=== PATIENT | female | born 1950 | race African-American/Black ===

== ENCOUNTER 2017-09-01 22:20 | Inpatient (IN) | payer OTHER, MEDICARE ==
[~2017-09-01] VITALS: Ht 167.6 cm; Wt 85.3 kg
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
[2017-09-02 00:55] LABS: ABSOLUTE BASOPHIL COUNT 0 /CUMM (0.0-0.2); ABSOLUTE EOSINOPHIL COUNT 0 /CUMM (0.0-0.7); ABSOLUTE GRANULOCYTE CT 7.4 /CUMM (1.4-6.5); ABSOLUTE LYMPH COUNT 0.6 /CUMM (1.2-3.4); ABSOLUTE MONOCYTE COUNT 0.5 /CUMM (0.10-0.60); BASOPHIL % 0.2 % (0.0-2.0); EOSINOPHIL % 0.3 % (0-5); HEMATOCRIT 36.9 % (37-47); MEAN CORPUSCULAR HGB 28.9 PG (27.0-31.0); MEAN CORPUSCULAR HGB CONC 32.3 G/DL (33.0-37.0); MEAN CORPUSCULAR VOLUME 89.4 FL (81.0-99.0); MEAN PLATELET VOLUME 8.5 FL (7.4-10.4); PLATELET COUNT 210 /CUMM (130-400); RBC DISTRIBUTION WIDTH 14.3 % (11.5-14.5); RED BLOOD CELL CT 4.13 /CUMM (4.20-5.40)
[2017-09-02 00:59] LABS: GRANULOCYTE % 86.2 % (42.2-75.2)
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
[2017-09-02 01:16] LABS: WHITE BLOOD CELL COUNT 8.6 /CUMM (4.8-10.8)
--- NOTE | 2017-09-02 02:47 | History & Physical ---
Pierre PARR,[place] 09/02/17 0247: General Information and HPI MD Statement: I have seen and personally examined FIDE RODRIGUES and documented this H&P. The patient is a 67 year old F who presented with a patient stated chief complaint of [L sided weakness and fall]. Source of Information: patient Exam Limitations: poor historian History of Present Illness: Patient is a 67-year-old female with a PMH significant for COPD, HTN, type II DM , laryngeal cancer status post radiation chemotherapy, arthritis, hypothyroidism who was brought in to the [facility] ED status post fall. Patient states that since 08/18/17 she has had progressive left-sided weakness which included her left upper and lower extremities as well as paresthesias with a tingling sensation in her left hand and a tingling and numbness sensation of her left side of her face. On the day of admission the patient states that she attempted to sit on the edge of a chair and slid off the and was too weak to stand up. She denied any associated chest pain, shortness of breath, lightheadedness, dizziness, loss of consciousness, head strike. She reports that she had a similar fall within the last week but cannot recall the date but at that time had the strength to stand back up. She has been having difficulty walking but has been able to ambulate independently. She had not sought any medical treatment for her left- sided weakness. She notes an approximate 11 pound weight loss in the last month with decreased appetite since the onset of his symptoms. She denied any slurring of speech, visual changes although notes that she has blurry vision at baseline and uses corrective lenses, headaches, nausea, vomiting. Allergies/Medications Allergies: Coded Allergies: No Known Allergies (09/01/17) Home Med list Amlodipine Besylate 10 MG TABLET 1 TAB PO DAILY BP (Reported) Hydralazine HCl 25 MG TABLET 1 TAB PO TID BP (Reported) Levothyroxine Sodium 25 MCG TABLET 1 TAB PO DAILY THYROID (Reported) Metformin HCl 500 MG TABLET 1 TAB PO BID DM (Reported) Metoprolol Tartrate 50 MG TABLET 1 TAB PO BID htn (Reported) Rosuvastatin Calcium (Crestor) 10 MG TABLET 1 TAB PO DAILY HL (Reported) Valsartan/Hydrochlorothiazide (Valsartan-Hctz 160-12.5 MG Tab) 160 MG-12.5 MG TABLET 1 TAB PO DAILY BP (Reported) Past History Travel History Traveled to [place] past 21 day No Medical History Neurological: NONE EENT: LARYGIAL CANCER Cardiovascular: hypertension Respiratory: COPD Gastrointestinal: NONE Hepatic: NONE Renal: NONE Musculoskeletal: NONE Psychiatric: NONE Endocrine: diabetes Blood Disorders: NONE Cancer(s): THROAT CANCER Tetanus Vaccine: 09/02/17 Tetanus Status: up to date Surgical History Surgical History: non-contributory Past Family/Social History Family History Relations & Conditions if any Relation not specified for: *No pertinent family history Psychosocial History Where do you live? Home Primary Language: Bolivian Smoking Status: Current Everyday Smoker (50 pack years) ETOH Use: denies use Illicit Drug Use: denies illicit drug use Living Will? no Functional Ability ADLs Independent: dressing, eating, toileting, bathing. Ambulation: independent Review of Systems Review of Systems Constitutional: Denies: chills, fever, malaise. EENTM: Reports: blurred vision (uses corrective lenses). Cardiovascular: Denies: chest pain, palpitations, syncope. Respiratory: Denies: cough, sputum production. GI: Denies: abdominal pain, diarrhea, nausea, bloody stool, vomiting. Genitourinary: Denies: dysuria, frequency, hematuria. Musculoskeletal: Reports: no symptoms. Skin: Reports: no symptoms. Exam & Diagnostic Data Last 24 Hrs of Vital Signs/I&O Vital Signs Date Time Temp Pulse Resp B/P B/P Pulse O2 O2 Flow FiO2 Mean Ox Delivery Rate 09/02 0435 91 Room Air 09/02 0422 98.1 90 18 128/92 91 Room Air 09/02 0045 98.3 82 16 112/71 98 Room Air 09/01 2229 98.9 95 18 110/66 93 Room Air Intake & Output 09/02 0800 09/02 0000 09/01 1600 Intake Total Output Total Balance Patient 187 lb 187 lb Weight Weight Bed scale Estimated Measurement Method Physical Exam General Appearance Alert, Oriented X3, Cooperative, No Acute Distress Skin No Rashes Skin Temp/Moisture Exam: Warm/Dry Cardiovascular Regular Rate, Normal S1, Normal S2 Lungs Clear to Auscultation, Normal Air Movement Abdomen Normal Bowel Sounds, Soft, No Tenderness Neurological Normal Speech, Cranial Nerves 3-12 NL, diminshed sensation of the RLE, RLE strength 4/5 with RLE drift, ataxic gait, patient failed bed side swallow evaluation with cough and throat clearing after sips of water Extremities No Clubbing, No Cyanosis, No Edema, Laceration to the R hand s/p 8 sutures placed in ED Body Front and Back (Adult) 1) laceration Last 24 Hrs of Labs/Harmeet: Laboratory Tests 09/02/17 0046: Anion Gap 12, Estimated GFR > 60, BUN/Creatinine Ratio 12.5, Glucose 104 H, Calcium 9.8, Total Bilirubin 0.7, AST 25, ALT 17, Alkaline Phosphatase 87, Troponin I < 0.01, Total Protein 7.2, Albumin 4.0, Globulin 3.2, Albumin/ Globulin Ratio 1.3, CBC w Diff NO MAN DIFF REQ, RBC 4.13 L, MCV 89.4, MCH 28.9, MCHC 32.3 L, RDW 14.3, MPV 8.5, Gran % 86.2 H, Lymphocytes % 7.4 L, Monocytes % 5.9, Eosinophils % 0.3, Basophils % 0.2, Absolute Granulocytes 7.4 H, Absolute Lymphocytes 0.6 L, Absolute Monocytes 0.5, Absolute Eosinophils 0, Absolute Basophils 0 09/02/17 0018: Urine Color YEL, Urine Clarity CLEAR, Urine pH 6.0, Ur Specific Guffey 1.010, Urine Protein TRACE H, Urine Ketones 15 H, Urine Nitrite NEG, Urine Bilirubin NEG, Urine Urobilinogen 2.0 H, Ur Leukocyte Esterase NEG, Ur Microscopic SEDIMENT EXAMINED, Ur Epithelial Cells RARE, Urine Crystals 4+ CA OX H, Urine Hemoglobin NEG, Urine Glucose NEG Microbiology 09/02 0453 URINE ROUT: Urine Culture - ORD Diagnostic Data EKG Results NSR with HR 76, QTc [address] Chest/abd/pelvis with IV contrast The heart is of normal size. There is no pericardial effusion. There are enlarged mediastinal lymph nodes. There is a right pretracheal lymph node on image 143/984 measuring approximately 2.7 x 2.5 cm. There is an enlarged lymph node anterior to the upper SVC on image 136 measuring approximately 1.8 x 1.4 cm. There is a subcarinal lymph node measuring 1.7 x 1.4 cm. There is a right hilar lymph node measuring 2.0 x 2.0 cm.. There are no chest wall masses. Review of lung windows demonstrates that there are neither pleural effusions nor pneumothoraces. There are mild manifestations of biapical emphysema. There is a right upper lobe cavitary lesion on image 170 measuring approximately 1.5 cm in greatest dimension. There is an irregular shaped macrolobulated mildly spiculated right upper lobe mass on image 202 measuring approximately 3.4 x 2.8 cm. There is inferior segment left lingular atelectasis or scarring. The liver is of normal size and attenuation without focal lesions nor intrahepatic biliary ductal dilation. A normal gallbladder is identified. There is no wall thickening or discernible pericholecystic fluid. The spleen, pancreas, adrenal glands are unremarkable. Both kidneys are of normal size and attenuation without hydronephrosis or nephrolithiasis. Following the administration of IV contrast, prompt symmetric nephrograms are displayed. There is no abdominal free fluid. There is neither mesenteric nor retroperitoneal lymphadenopathy. Normal unopacified loops of small and large bowel are identified. A normal appendix is identified. There is no pelvic free fluid. The urinary bladder is unremarkable. There is neither pelvic nor inguinal lymphadenopathy. Bone windows: Neither sclerotic nor lytic bone lesions are identified. IMPRESSION: Spiculated right upper lobe mass concerning for a primary lung neoplasm. In addition, there is mediastinal and right hilar lymphadenopathy. There is an additional cavitary right upper lobe lesion. Mild biapical emphysema. Other Results HEAD CT There are no pathologic extra-axial fluid collections. The lateral, third, fourth ventricles are nondilated and concordant with the appearance of the sulci. There is extensive subcortical low-attenuation within the right centrum semiovale with suggestion of mass effect manifested by subtle sulcal effacement. Within the high right frontoparietal region, there is an ill-defined area of low-attenuation measuring approximately 10 mm on image 44/64. In addition, there is an area of low-attenuation measuring approximately 12 mm within the medial right frontal lobe adjacent to the cortex. The paranasal sinuses and mastoid air cells are clear. There are no osseous lesions. IMPRESSION: Extensive subcortical low-attenuation within the right centrum semiovale suggestive of edema. This surrounds an ill-defined area of low-attenuation within the high right frontoparietal region measuring 10 mm. The appearance is nonspecific, but could be b2b outside sales representative of a mass lesion with surrounding edema. That this represents a subacute infarction is also to be considered. As well, there is a similar appearing subtle ill-defined 12 mm low-attenuation lesion within the medial right frontal lobe. Consider correlation with brain MRI with contrast at this time. Assessment/Plan Assessment: Patient is a 67-year-old female with a PMH significant for COPD, HTN, type II DM , laryngeal cancer status post radiation chemotherapy, arthritis, hypothyroidism who was brought in to the [facility] ED status post fall. Patient states that since 08/18/17 she has had progressive left-sided weakness which included her left upper and lower extremities as well as paresthesias with a tingling sensation in her left hand and a tingling and numbness sensation of her left side of her face. Head CT shows extensive edema surrounding an area of low attenuation in the right frontoparietal region approximately 10 mm and in the medial right frontal lobe [address] chest shows right upper lobe spiculated mass and cavitary right upper lobe lesion. Vital signs on admission: T 98.9, P 95, RR 18, BP 110/66, pulse ox 93% on room air Labs: WBC 8.6, H/H 11.9/36.9, platelets 210, sodium 146, potassium 3.9, chloride 101, CO2 32, BUN 10, creatinine 0.8, glucose 104, troponin <0.01 Problem list #Left-sided weakness and paresthesia in setting of poorly visualized areas of low attenuation suspicious for metastatic lesion, cannot rule out CVA #spiculated right upper lobe mass seen on CT #Right hand laceration status post suturing in ED #Chronic medical problems including COPD, HTN, type II DM, laryngeal carcinoma status post radiation and chemotherapy, arthritis, hypothyroidism Plan -Admit to telemetry -Continuous telemetry monitoring -Neuro checks every 4 hours -Echocardiogram -Carotid Doppler ultrasound -MRI head with and without gadolinium to better visualize the poorly visualized areas of low attenuation suspicious for mass lesion or possible subacute infarct -Neurosurgical consult placed with the answering service of Dr. Thurman -Oncology consult placed with answering service to [facility], patient followed with Dr. England for laryngeal cancer -Neurology consult placed with the answering service of Dr. Fry -Patient failed a bedside swallow evaluation, we will keep n.p.o. pending a formal swallow evaluation -Gentle IV hydration with D5 NS -N.p.o. Novolin sliding scale with Accu-Cheks every 6 hours until diet advanced -We will hold anti-hypertensive medication for now -8 mg Decadron one time -Fall precautions, seizure precautions, aspiration precautions -PT evaluation and treatment Diet: N.p.o. pending formal swallow evaluation, then diabetic diet DVT prophylaxis: Subcutaneous heparin, Alps CODE STATUS: Full code As Ranked By This Provider Problem List: 1. Paresthesia 2. Intracranial space-occupying lesion 3. Lesion of lung 4. Cavitary lesion of lung Core Measures/Misc (12/03) Acute Coronary Syndrome ACS Diagnosis: No Congestive Heart Failure Congestive Heart Failure Diagnosis No Cerebrovascular Accident CVA/TIA Diagnosis: Yes NIH Stroke Scale: Total 3 Date Last Known Well: 08/18/17 Time Last Known Well: 0000 Symptom Start Date: 08/18/17 Symptom Start Time: 0000 Reason tPA not ordered Medical Contraindication Swallow Evaluation Fail Current/Past Hx AFib/AFlutter No No Antithrombotic d/t Medical Contraindication VTE (View Protocol) VTE Risk Factors Age>40 No Mechanical VTE Prophylaxis d/t N/A MechProphylax Ordered No VTE Pharm Prophylaxis d/t NA PharmProphylax ordered Sepsis (View protocol) Sepsis Present: No If YES complete Sepsis Event Note If YES complete Sepsis Event Note Kathy Keita 09/02/17 0302: Core Measures/Misc (12/03) Sepsis (View protocol) If YES complete Sepsis Event Note If YES complete Sepsis Event Note Resident Review Statement Resident Statement: examined this patient, discussed with inclusion intern, agreed with inclusion intern Other Findings: This is a 67-year-old female with past medical history of laryngeal disorder, current active smoker, COPD with chronic bronchitis, 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 Apparently the patient started to experience some left-sided weakness in the leg along with left-sided weakness associated with tingling and numbness in the hand along with facial numbness on 08/18/2017. The weakness and the tingling numbness has since been there, she has also experienced urinary incontinence, wherein she experiences the sensation however she cannot reach the bathroom in time. Today she was extremely weak and went too far to the end of her seat and couldn't get up after the fall that is when she called 911. Her weakness has been present since August 18, same no improvement or worsening.She also endorses the history of losing 11 pounds in last 1 month and lack of appetite. Her vitals on presentation are MAXIMUM TEMPERATURE of 98.9, pulse of 95, respiration of 18, blood pressure 110/66, she was saturating 93% on room air. Physical Exam : AOx3,no acute distress, sitting on the bed, mouth very dry, poor oral hygiene CVS : s1s2 present, no murmur RS : AEBE, no air movement. Abd : soft,nontender Neuro : normal speech, CN intact,cerebellar signs normal, gait ataxia +, diminishes strength 4/5 RLE, RLE drift+, LLE 5/5, b/l UE 5/5 ,DTR+. Extremities : no clubbing, cyanosis, edema, pulses palpable b/l. Relevant labs white count of 8.6, H/H of 11.9/36.9, platelet of 210. Sodium of 146, potassium of 3.9, BUN/creatinine of 10/0.8, glucose of 104, calcium of 9.8, liver function test within normal limits, troponin I less than 0.01. Urinalysis showed trace protein with ketones, 4+ calcium oxalate crystals negative leukocyte esterase and negative nitrite. Initial ED EKG showed normal sinus rhythm, rate of 76, no acute ST-T wave changes. She also suffered laceration on her right side which was sutured. CT head/chest showed spiculated right upper lobe mass concerning for primary lung neoplasm, mediastinal and right hilar lymphadenopathy, subcortical low attenuation within the high right frontoparietal region of edema surrounded by an ill-defined area of low attenuation within the right medial region measuring 10mm, possibly presenting mass lesion with surrounding edema versus a subacute infarct. Similar appearing subtle ill-defined 12 mm low-attenuation lesion present in the medial right frontal lobe as well. Problem list along with assessment and plan. #1 mechanical Fall + left-sided weakness possibly 2/2 to metastasis versus infarct Continue to monitor on telemetry. Continue NIH stroke scale with neuro checks q2 We'll obtain MRI with and without contrast in the morning to assess the low attenuated areas in the right frontoparietal and medial frontal area. Neurology consult along with neurosurgical consult in a.m. Patient nothing by mouth for now. Swallow eval in a.m. Echocardiogram/carotid Doppler/swallow evaluation in the a.m./PT/OT. Allow permissive hypertension hold antihtn will administer one time decadron 8mg fall precautions/aspiration precautions. check lipid panel #2 History of throat cancer - squamous cell cancer of the larynx, now seen spiculated right upper lobe mass with mediastinal and right hilar lymphadenopathy along with possible lesions in the head. Patient has positive history of poor by mouth intake and weight loss. She was treated for throat cancer with chemotherapy and radiation in 2001 after which she has been in remission. Follows up with Dr. England as outpatient and had seen them recently 02/01/2017. Oncology consult in a.m.with Dr. Jonathan NUNN for further evaluation of the lesion. #3 h/o DM hold antidiabetic continue monitor F/S novolin SS if needed as patient is NPO. #[address] levothyroxine, will change po to iv as she cannot take PO. Recheck TFT's #5 HTN for now will hold all antihtn meds. Ct to monitor BP. Full code Dvt px lovenox PP tylenol NPO for now. Hernan PARR, [facility] 09/02/17 0612: Core Measures/Misc (12/03) Sepsis (View protocol) If YES complete Sepsis Event Note If YES complete Sepsis Event Note Attending MD Review Statement Attending Statement Attending MD Statement: examined this patient, discuss w/resident/PA/DIRECTOR RELIGIOUS EDUCATION, agreed w/resident/PA/DIRECTOR RELIGIOUS EDUCATION, reviewed images, amended to note Attending Assessment/Plan: 67 yo F with h/o laryngeal cancer s/p chemo-radiation (1999), COPD, current smoker, elevated ferritin, HTN, DM, hypothyroidism, is here status post mechanical fall at home wherein she was unable to get off the floor. She reports 2 week h/o left sided tingling numbness and weakness, associated with blurry vision and difficulty with bladder control urinary urgency and incontinence. She denies fecal incontinence, last BM was 4 days ago which is normal for her. She reports loss of appetite, weight loss of 11 pounds in 1 month. Reports similar fall inthe past 1-2 weeks but was able to get herself up. Vitals stable. Exam: AAO, dry mucosa, speech is slightly slurred, no cranial nerve deficits, ataxia+, power 4/5 left side with diminished sensation, failed swallow eval. Labs essentially normal. CT head: extensive subcortical low-attenuation s/o edema, ill-defined area of low-attenuation right frontoparietal region, could be mass lesion with surrounding edema, or subacute infarction. CT CAP: spiculated right upper lobe mass concerning for primary lung neoplasm, mediastinal and right hilar lymphadenopathy, cavitary right upper lobe lesion, emphysema. EKG: sinus rhythm. Assessment and plan: 1. Fall, left sided weakness 2. Brain metastasis vs subacute infarction 3. History of laryngeal cancer s/p chemo radiation 4. Right upper lobe mass ?primary neoplasm 5. Tobacco dependence 6. Right hand laceration s/p suture repair - Admit to Telemetry - Neurochecks Q2 - Fall precautions - Place White catheter - Obtain MRI head with and without RANDAL - Obtain echo, carotid doppler - Neuro and Neurosurgery input - NPO, swallow eval, gentle hydration - Check lipid panel, TSH, free T4, HbA1c - IV decadron 8 mg once - Discuss with Neurosurgery for further need for steroids - Hold aspirin and statin until evaluated by Neuro - Oncology input (patient follows with Dr. Medrano) - Needs lung mass biopsy for tissue diagnosis - Diabetes management - Smoking cessation counseling, nicotine patch DVT ppx Lovenox. Full code.
--- NOTE | 2017-09-02 03:26 | CT SCAN REPORT ---
EXAMINATION: CT CHEST, ABDOMEN AND PELVIS WITH CONTRAST CLINICAL INFORMATION: Concern for metastatic disease. COMPARISON: None. TECHNIQUE: Contiguous axial thin section helical images of the chest, abdomen and pelvis were performed following the administration of 95 mL of intravenous Optiray 320. The data set was reformatted in the coronal and sagittal planes and reviewed on an independent workstation. DLP: 790 mGy-cm. FINDINGS: The heart is of normal size. There is no pericardial effusion. There are enlarged mediastinal lymph nodes. There is a right pretracheal lymph node on image 143/984 measuring approximately 2.7 x 2.5 cm. There is an enlarged lymph node anterior to the upper SVC on image 136 measuring approximately 1.8 x 1.4 cm. There is a subcarinal lymph node measuring 1.7 x 1.4 cm. There is a right hilar lymph node measuring 2.0 x 2.0 cm.. There are no chest wall masses. Review of lung windows demonstrates that there are neither pleural effusions nor pneumothoraces. There are mild manifestations of biapical emphysema. There is a right upper lobe cavitary lesion on image 170 measuring approximately 1.5 cm in greatest dimension. There is an irregular shaped macrolobulated mildly spiculated right upper lobe mass on image 202 measuring approximately 3.4 x 2.8 cm. There is inferior segment left lingular atelectasis or scarring. The liver is of normal size and attenuation without focal lesions nor intrahepatic biliary ductal dilation. A normal gallbladder is identified. There is no wall thickening or discernible pericholecystic fluid. The spleen, pancreas, adrenal glands are unremarkable. Both kidneys are of normal size and attenuation without hydronephrosis or nephrolithiasis. Following the administration of IV contrast, prompt symmetric nephrograms are displayed. There is no abdominal free fluid. There is neither mesenteric nor retroperitoneal lymphadenopathy. Normal unopacified loops of small and large bowel are identified. A normal appendix is identified. There is no pelvic free fluid. The urinary bladder is unremarkable. There is neither pelvic nor inguinal lymphadenopathy. Bone windows: Neither sclerotic nor lytic bone lesions are identified. IMPRESSION: Spiculated right upper lobe mass concerning for a primary lung neoplasm. In addition, there is mediastinal and right hilar lymphadenopathy. There is an additional cavitary right upper lobe lesion. Mild biapical emphysema.
[2017-09-02] MEDS ORDERED: CRESTOR10 M1 PO (03:29)
[2017-09-02] MEDS ORDERED: METFORMIN HCL500 M3 PO (03:29)
[2017-09-02] MEDS ORDERED: HYDRALAZINE HCL25 M1 PO (03:30)
[2017-09-02] MEDS ORDERED: AMLODIPINE BESY10 M1 PO (03:31)
[2017-09-02] MEDS ORDERED: LEVOTHYROXINE25 MCG PO (03:31)
[2017-09-02] MEDS ORDERED: VALSARTAN-HCTZ1 EAC1 PO (03:33)
[2017-09-02 04:22] VITALS: BP 128/92
[2017-09-02] MEDS ORDERED: METOPROLOL TART50 M1 PO (05:26)
--- NOTE | 2017-09-02 06:59 | Admission Certification ---
Admission Certification Certification Statement - As attending physician, I certify that at the time of - admission, based on clinical presentation, severity of - symptoms, need for further diagnostic testing and - therapeutic interventions, and risk of adverse outcomes - without in-hospital treatment, in my clinical assessment, - this patient requires an acute hospital stay for a minimum - of two nights or longer. I have also considered psychsocial - factors such as support system, advanced age, financial - issues, cognitive issues, and failed out-patient treatments, - past re-admission history, safety of patient, and lack of - compliance as applicable. Specific rationale supporting this admission is: Fall, left sided weakness, concerning for brain mass lesion vs. subactue stroke.
[2017-09-02 07:52] VITALS: BP 154/98
[2017-09-02 08:21] LABS: ABSOLUTE BASOPHIL COUNT 0 /CUMM (0.0-0.2); ABSOLUTE EOSINOPHIL COUNT 0 /CUMM (0.0-0.7); ABSOLUTE GRANULOCYTE CT 6.4 /CUMM (1.4-6.5); ABSOLUTE LYMPH COUNT 1.6 /CUMM (1.2-3.4); ABSOLUTE MONOCYTE COUNT 0.8 /CUMM (0.10-0.60); BASOPHIL % 0.2 % (0.0-2.0); EOSINOPHIL % 0.4 % (0-5); HEMATOCRIT 35.3 % (37-47); MEAN CORPUSCULAR HGB 28.9 PG (27.0-31.0); MEAN CORPUSCULAR HGB CONC 32.2 G/DL (33.0-37.0); MEAN CORPUSCULAR VOLUME 89.5 FL (81.0-99.0); MEAN PLATELET VOLUME 9.1 FL (7.4-10.4); PLATELET COUNT 188 /CUMM (130-400); RBC DISTRIBUTION WIDTH 14.5 % (11.5-14.5); RED BLOOD CELL CT 3.95 /CUMM (4.20-5.40); WHITE BLOOD CELL COUNT 8.9 /CUMM (4.8-10.8)
--- NOTE | 2017-09-02 09:30 | Cons- Neurosurgical ---
See Addendum Víctor Wilson 09/02/17 0845: General Information and HPI Consulting Request Date of Consult: 09/02/17 Requested By: Roly Becerra MD Reason for Consult: Brain lesions Source of Information: patient History of Present Illness: This is a a 67-year-old female with a past medical history significant for COPD, HTN, DM, laryngeal cancer in 2000 s/p chemo/radiation, in remission, arthritis, hypothyroidism and HLD who presented to [facility] yesterday with a 2 week history of progressive left sided weakness resulting in a mechanical fall. Yesterday, patient reports she was sitting on the edge of her chair and fell off of it because she was reportedly too weak to stand up and landed on the right side of her buttock. She denies any head trauma or loss of consciousness. Patient reports associated paresthesias in her left hand and numbness of the left side of her face. She reports urinary urge incontience and a decreased appetite with 32 pound weight loss over the last couple months which she contributes to eating better due to recent diabetes diagnosis, however reports having a decreased appetite. She denies any associated fecal incontience, lightheadedness, dizziness, vision or speech changes, headache, nausea, vomiting , chest pain, shortness of breath, fever or chills. In the ER, she had a head CT which revealed multiple brain lesion with surrounding edema. In addition, she had a chest CT revealed a right upper lobe lung mass, concerning for primary lung neoplasm, with mediastinal and right hilar lymphadenopathy. Allergies/Medications Allergies: Coded Allergies: No Known Allergies (09/01/17) Home Med List: Amlodipine Besylate 10 MG TABLET 1 TAB PO DAILY BP (Reported) Hydralazine HCl 25 MG TABLET 1 TAB PO TID BP (Reported) Levothyroxine Sodium 25 MCG TABLET 1 TAB PO DAILY THYROID (Reported) Metformin HCl 500 MG TABLET 1 TAB PO BID DM (Reported) Metoprolol Tartrate 50 MG TABLET 1 TAB PO BID htn (Reported) Rosuvastatin Calcium (Crestor) 10 MG TABLET 1 TAB PO DAILY HL (Reported) Valsartan/Hydrochlorothiazide (Valsartan-Hctz 160-12.5 MG Tab) 160 MG-12.5 MG TABLET 1 TAB PO DAILY BP (Reported) Current Medications: Current Medications Sig/Ramy Start time Last Medication Dose Route Stop Time Status Admin Cyclobenzaprine HCl 0 .STK-MED ONE 09/02 0452 DC PO Dexamethasone 8 MG ONCE ONE 09/02 0445 DC 09/02 IV 09/02 0446 0558 Dextrose/Sodium 1,000 ML ONCE ONE 09/02 0500 AC 09/02 Chloride IV 09/03 0059 0529 Insulin Human Regular 0 Q6 09/02 0600 AC 09/02 SC 0604 Levothyroxine Sodium 12.5 MCG DAILY 09/02 0900 AC IV Levothyroxine Sodium 0.025 MG DAILY AC 09/02 0700 CAN PO Lidocaine 20 ML ONCE ONE 09/01 2330 DC 09/01 ID 09/01 2331 2322 Oxycodone/ 0 .STK-MED ONE 09/02 0452 DC Acetaminophen PO Sodium Phosphate 1 UNIT ONCE ONE 09/02 0800 DC ID 09/02 0801 Tetanus/Diphtheria 0 .STK-MED ONE 09/01 2332 DC Toxoids Adsorbed IM Tetanus/Diphtheria 0.5 ML ONCE ONE 09/01 2330 DC 09/01 Toxoids Adsorbed IM 09/01 2331 2337 Past History Medical History Blood Transfusion Hx: Yes Neurological: NONE EENT: LARYGIAL CANCER Cardiovascular: hypertension, hyperlipidemia Respiratory: COPD Gastrointestinal: NONE Hepatic: NONE Renal: NONE Musculoskeletal: NONE Psychiatric: NONE Endocrine: diabetes Blood Disorders: NONE Cancer(s): THROAT CANC[employer]OR NUTRITIONAL YEAST/Reproductive: NONE Surgical History Pertinent Surgical History: hysterectomy, R thumb pinning Family History Relations & Conditions If Any: Relation not specified for: *No pertinent family history Psychosocial History Where Do You Live? Home Who Do You Live With? self Services at Home: None Primary Language: Chinese Smoking Status: Current Everyday Smoker (50 pack years) ETOH Use: denies use Illicit Drug Use: denies illicit drug use Living Will? no Functional Ability ADLs Independent: dressing, eating, toileting, bathing. Ambulation: independent Review of Systems Review of Systems: Refer to H&P Exam & Diagnostic Data Vital Signs and I&O Vital Signs Date Time Temp Pulse Resp B/P B/P Pulse O2 O2 Flow FiO2 Mean Ox Delivery Rate 09/02 0800 92 Room Air 09/02 0752 98.1 80 20 154/98 92 Room Air 09/02 0435 91 Room Air 09/02 0422 98.1 90 18 128/92 91 Room Air 09/02 0045 98.3 82 16 112/71 98 Room Air 09/01 2229 98.9 95 18 110/66 93 Room Air Intake & Output 09/02 1600 09/02 0809/02 0000 09/01 0800 09/01 0000 Intake Total 50 Output Total 200 Balance -150 Intake, IV 50 Intake, Oral 0 Number 0 Bowel Movements Output, Urine 200 Patient 187 lb 187 lb Weight Weight Bed scale Estimated Measurement Method Physical Exam: General - resting comfortably in no acute distress HEENT - NC/AT, dry mucus membranes Cardiac - S1S2 noted Lungs - diminished breath sounds throughout otherwise clear Abdomen - soft, nondistended, nontender Extremities - left hand with dressing in place, c/d/i, no edema or calf tenderness B/L Neuro - A&Ox3, CN 3-12 intact, motor RUE 5/5, RLE 5/5, LUE 4/5, LLE 4/5, ataxia present, diminished left-sided sensation Last 24 Hours of Labs: Laboratory Tests 09/02 09/02 0626 0046 Chemistry Sodium (137 - 145 mmol/L) 146 H 146 H Potassium (3.5 - 5.1 mmol/L) 3.7 3.9 Chloride (98 - 107 mmol/L) 104 101 Carbon Dioxide (22 - 30 mmol/L) 29 32 H Anion Gap (5 - 16) 13 12 BUN (7 - 17 mg/dL) 9 10 Creatinine (0.5 - 1.0 mg/dL) 0.7 0.8 Estimated GFR (>60 ml/min) > 60 > 60 BUN/Creatinine Ratio (7 - 25 %) 12.9 12.5 Glucose (65 - 99 mg/dL) 104 H Calcium (8.4 - 10.2 mg/dL) 9.8 Magnesium (1.6 - 2.3 mg/dL) 1.9 Total Bilirubin (0.2 - 1.3 mg/dL) 0.7 AST (14 - 36 U/L) 25 ALT (9 - 52 U/L) 17 Alkaline Phosphatase (<127 U/L) 87 Troponin I (< 0.11 ng/ml) < 0.01 Total Protein (6.3 - 8.2 g/dL) 7.2 Albumin (3.5 - 5.0 g/dL) 4.0 Globulin (1.9 - 4.2 gm/dL) 3.2 Albumin/Globulin Ratio (1.1 - 2.2 %) 1.3 TSH (0.270 - 4.200 uIU/mL) 2.830 Free T4 (0.78 - 2.44 ng/dL) 1.69 Hematology CBC w Diff NO MAN DIFF REQ NO MAN DIFF REQ WBC (4.8 - 10.8 /CUMM) 8.9 8.6 RBC (4.20 - 5.40 /CUMM) 3.95 L 4.13 L Hgb (12.0 - 16.0 G/DL) 11.4 L 11.9 L Hct (37 - 47 %) 35.3 L 36.9 L MCV (81.0 - 99.0 FL) 89.5 89.4 MCH (27.0 - 31.0 PG) 28.9 28.9 MCHC (33.0 - 37.0 G/DL) 32.2 L 32.3 L RDW (11.5 - 14.5 %) 14.5 14.3 Plt Count (130 - 400 /CUMM) 188 210 MPV (7.4 - 10.4 FL) 9.1 8.5 Gran % (42.2 - 75.2 %) 72.0 86.2 H Lymphocytes % (20.5 - 51.1 %) 17.9 L 7.4 L Monocytes % (1.7 - 9.3 %) 9.5 H 5.9 Eosinophils % (0 - 5 %) 0.4 0.3 Basophils % (0.0 - 2.0 %) 0.2 0.2 Absolute Granulocytes (1.4 - 6.5 /CUMM) 6.4 7.4 H Absolute Lymphocytes (1.2 - 3.4 /CUMM) 1.6 0.6 L Absolute Monocytes (0.10 - 0.60 /CUMM) 0.8 H 0.5 Absolute Eosinophils (0.0 - 0.7 /CUMM) 0 0 Absolute Basophils (0.0 - 0.2 /CUMM) 0 0 06/17 0018 Urines Urine Color (YEL,AMB,STR) YEL Urine Clarity (CLEAR) CLEAR Urine pH (5.0 - 8.0) 6.0 Ur Specific [place] (1.001 - 1.035) 1.010 Urine Protein (NEG,<30 MG/DL) TRACE H Urine Ketones (NEG) 15 H Urine Nitrite (NEG) NEG Urine Bilirubin (NEG) NEG Urine Urobilinogen (0.1 - 1.0 EU/dl) 2.0 H Ur Leukocyte Esterase (NEG) NEG Ur Microscopic SEDIMENT EXAMINED Ur Epithelial Cells (NONE,FEW) RARE Urine Crystals 4+ CA OX H Urine Hemoglobin (NEG) NEG Urine Glucose (N MG/DL) NEG Assessment/Plan Assessment/Plan This is a 67 year-old female smoker with 2 week history of progressive left- sided weakness and paresthesias resulting in a fall yesterday with associated decreased appetite and significant weight loss. She was found on imaging to have bilateral brain lesions with edema as well as a right upper lobe lung mass with associated hilar and mediastinal lympadenopathy, which is concerning for metastatic disease verses inflammation verses infection. Imaging was reviewed with Dr. Thurman. No neurosurgical intervention is warrented at this time. Further workup should include MRI with contrast as well as IR biopsy of lung mass. Also recommend sed rate and c-reactive protein. Would continue neurochecks and decadron in setting of brain edema, recommend 2 mg Q6. No further surgical recommendations. Plan of case discussed with Dr. Thurman who is in agreement. Consult Acknowledgment - Thank you for your consult request. [facility] 09/02[facility]171942: Assessment/Plan Consult Acknowledgment - Thank you for your consult request. Attending MD Review Statement Attending Statement Attending Assessment/Plan: I have seen and examined this patient. I have reviewed her films. CT of the head suggestive of multifocal metastatic disease, especially in light of chest CT finding and clinical history. Cannot rule out infectious or inflammatory etiology. Will await MRI of the brain, with and without gadolinium. If this study confirms multifocal metastatic disease, patient will be a candidate for chemotherapy radiation and is unlikely to require any neurosurgical intervention. -Agree with Decadron -head of bed at 30 -would not prophylax with anticonvulsant unless clinical evidence for seizure -Consider DVT prophylaxis using subcutaneous heparin twice a day, patient at high risk for hypercoagulable state Call with questions.
--- NOTE | 2017-09-02 10:49 | PN- Att Addend ---
Attending Addendum Attending Brief Note Patient here with fall and found to have brain mass with brain edema. Neurosurgery consulted and recommend no surgical intervention. Continue with iv decadron and consult neurology and oncology pending. Labs and imaging reviewed She is aaox3 orineted with no obvious focal deficits, no acute distress. CN intact. Motor strength intact, ataxia present. Continue plan of care as per admitting physician. frequent neurochecks and fall precautions. Speech/swallow consult for failed bedside swallow testing in ER. Admission Lab Results I reviewed the following labs: Laboratory Tests 09/02 09/02 0626 0046 Chemistry Sodium (137 - 145 mmol/L) 146 H 146 H Potassium (3.5 - 5.1 mmol/L) 3.7 3.9 Chloride (98 - 107 mmol/L) 104 101 Carbon Dioxide (22 - 30 mmol/L) 29 32 H Anion Gap (5 - 16) 13 12 BUN (7 - 17 mg/dL) 9 10 Creatinine (0.5 - 1.0 mg/dL) 0.7 0.8 Estimated GFR (>60 ml/min) > 60 > 60 BUN/Creatinine Ratio (7 - 25 %) 12.9 12.5 Glucose (65 - 99 mg/dL) 104 H Hemoglobin A1c (4.2 - 5.8 %) Pending Calcium (8.4 - 10.2 mg/dL) 9.8 Magnesium (1.6 - 2.3 mg/dL) 1.9 Total Bilirubin (0.2 - 1.3 mg/dL) 0.7 AST (14 - 36 U/L) 25 ALT (9 - 52 U/L) 17 Alkaline Phosphatase (<127 U/L) 87 Troponin I (< 0.11 ng/ml) < 0.01 Total Protein (6.3 - 8.2 g/dL) 7.2 Albumin (3.5 - 5.0 g/dL) 4.0 Globulin (1.9 - 4.2 gm/dL) 3.2 Albumin/Globulin Ratio (1.1 - 2.2 %) 1.3 Triglycerides (<150 mg/dL) 58 Cholesterol (<200 MG/DL) 183 LDL Cholesterol, Calc (65 - 129 mg/dL) 117 HDL Cholesterol (40 - 60 mg/dL) 55 Cholesterol/HDL Ratio (0.00 - 4.23 %) 3 TSH (0.270 - 4.200 uIU/mL) 2.830 Free T4 (0.78 - 2.44 ng/dL) 1.69 Hematology CBC w Diff NO MAN DIFF REQ NO MAN DIFF REQ WBC (4.8 - 10.8 /CUMM) 8.9 8.6 RBC (4.20 - 5.40 /CUMM) 3.95 L 4.13 L Hgb (12.0 - 16.0 G/DL) 11.4 L 11.9 L Hct (37 - 47 %) 35.3 L 36.9 L MCV (81.0 - 99.0 FL) 89.5 89.4 MCH (27.0 - 31.0 PG) 28.9 28.9 MCHC (33.0 - 37.0 G/DL) 32.2 L 32.3 L RDW (11.5 - 14.5 %) 14.5 14.3 Plt Count (130 - 400 /CUMM) 188 210 MPV (7.4 - 10.4 FL) 9.1 8.5 Gran % (42.2 - 75.2 %) 72.0 86.2 H Lymphocytes % (20.5 - 51.1 %) 17.9 L 7.4 L Monocytes % (1.7 - 9.3 %) 9.5 H 5.9 Eosinophils % (0 - 5 %) 0.4 0.3 Basophils % (0.0 - 2.0 %) 0.2 0.2 Absolute Granulocytes (1.4 - 6.5 /CUMM) 6.4 7.4 H Absolute Lymphocytes (1.2 - 3.4 /CUMM) 1.6 0.6 L Absolute Monocytes (0.10 - 0.60 /CUMM) 0.8 H 0.5 Absolute Eosinophils (0.0 - 0.7 /CUMM) 0 0 Absolute Basophils (0.0 - 0.2 /CUMM) 0 0 06/17 0018 Urines Urine Color (YEL,AMB,STR) YEL Urine Clarity (CLEAR) CLEAR Urine pH (5.0 - 8.0) 6.0 Ur Specific [place] (1.001 - 1.035) 1.010 Urine Protein (NEG,<30 MG/DL) TRACE H Urine Ketones (NEG) 15 H Urine Nitrite (NEG) NEG Urine Bilirubin (NEG) NEG Urine Urobilinogen (0.1 - 1.0 EU/dl) 2.0 H Ur Leukocyte Esterase (NEG) NEG Ur Microscopic SEDIMENT EXAMINED Ur Epithelial Cells (NONE,FEW) RARE Urine Crystals 4+ CA OX H Urine Hemoglobin (NEG) NEG Urine Glucose (N MG/DL) NEG Admission Meds I reviewed the following Meds: Current Medications Sig/Ramy Start time Last Medication Dose Stop Time Status Admin Dexamethasone 4 MG Q6 09/02 1015 AC (Decadron) Dextrose/Water 50 ML (D5W) Dextrose/Sodium 1,000 ML ONCE ONE 09/02 0500 AC 09/02 Chloride 09/03 0059 0529 (D5-Normal Saline) Insulin Human Regular 0 Q6 09/02 0600 AC 09/02 (NovoLIN R) 0604 Levothyroxine Sodium 12.5 MCG DAILY 09/02 0900 AC (Synthroid) Levothyroxine Sodium 0.025 MG DAILY AC 09/02 0700 CAN (Synthroid) Nicotine 21 MG DAILY 09/02 0909 AC (Nicoderm)
--- NOTE | 2017-09-02 12:11 | ULTRASOUND REPORT ---
EXAMINATION: DUPLEX BILATERAL CAROTID ULTRASOUND CLINICAL INFORMATION: Left weakness and facial numbness; risk factors include diabetes, tobacco use and hypertension. COMPARISON: Prior examinations, most recently 04/13/2016. TECHNIQUE: \H\B\N\ilateral carotid US was performed using real-time ultrasound and Doppler techniques (integrating B-mode 2D vascular images, Doppler spectral analysis and color flow Doppler imaging). These techniques were utilized to interrogate the extracranial carotid and vertebral arteries bilaterally. The degree of stenosis is based off criteria similar to NASCET. FINDINGS: Right side: 1. Mild echogenic plaque is seen in the ECA/ICA region. 2. The common carotid artery velocity is 94 cm/s. 3. The proximal internal carotid artery velocities are 64 cm/s systolic and 30 cm/s diastolic. 4. The external carotid artery velocity is 61 cm/s. Left side: 1. Mild echogenic plaque is seen in the ECA/ICA region. 2. The common carotid artery velocity is 112 cm/s. 3. The proximal internal carotid artery velocities are 66 cm/s systolic and 27 cm/s diastolic. 4. The external carotid artery velocity is 106 cm/s. ADDITIONAL FINDINGS: 1. The vertebral arteries show antegrade flow. IMPRESSION: 1. RIGHT: Minimal, nonhemodynamically significant stenosis of the proximal right internal carotid artery corresponding to a 0-49% stenosis by velocity criteria. 2. LEFT: Minimal, nonhemodynamically significant stenosis of the proximal left internal carotid artery corresponding to a 0-49% stenosis by velocity criteria. 3. Antegrade flow is seen via the bilateral vertebral arteries.
[2017-09-02 14:24] VITALS: BP 132/90
[2017-09-02 21:51] VITALS: BP 130/86
[2017-09-03 06:00] VITALS: BP 140/86
--- NOTE | 2017-09-03 07:32 | PN- Housestaff ---
See Addendum Subjective Follow-up For: Metastatic brain lesions Tele-Events Since Last Visit: Normal sinus rhythm heart rate in the 80s Subjective: Patient seen and examined. Resting comfortably. Does not offer any complaints. States that she is having mild pain in the backs likely secondary to hospital bed. Reported that she has not eaten for past 2 days. Would like to eat something. It was explained to the patient that she is going to get a swallow eval with barium swallow in the morning and we will proceed from there. She is going to get an MRI today as well as she is aware. Dr. Rodriguez patient's oncologist was at the bedside. Review of Systems Constitutional: Reports: see HPI. Objective Last 24 Hrs of Vital Signs/I&O Vital Signs Date Time Temp Pulse Resp B/P B/P Pulse O2 O2 Flow FiO2 Mean Ox Delivery Rate 09/03 0600 98.7 78 18 140/86 92 Room Air 09/02 2151 98.2 78 18 130/86 92 Room Air 09/02 1600 91 Room Air 09/02 1424 97.8 81 18 132/90 91 Room Air Intake & Output 09/03 1600 09/03 0800 09/03 0000 Intake Total 350 Output Total 550 350 Balance -200 -350 Intake, IV 350 Output, Urine 550 350 Patient 191 lb Weight Weight Bed scale Measurement Method Physical Exam General Appearance: Alert, Oriented X3, Cooperative, No Acute Distress Cardiovascular: Normal S1, Normal S2 Lungs: Clear to Auscultation Abdomen: Normal Bowel Sounds, Soft, No Tenderness Neurological: Normal Speech, Normal Tone, Sensation Intact (slighly diminshed), Left sided weakness upper and lower extremity 4/5 Extremities: No Edema Other Physical Findings: Failed bedside swallow evaluation Current Medications: Current Medications Sig/Ramy Start time Last Medication Dose Route Stop Time Status Admin Acetaminophen 1,000 MG ONCE ONE 09/02 2330 DC 09/02 N/A 1 UNIT IV 09/02 2344 2345 Acetaminophen 1,000 MG ONCE ONE 09/02 1700 DC 09/02 IV 09/02 1701 1701 Dexamethasone 2 MG Q6H 09/02 1700 CAN Dextrose/Water 50 ML IV Dexamethasone 2 MG Q8 09/02 1400 CAN IV PUSH Dexamethasone 2 MG Q6H 09/02 1200 AC 09/03 Dextrose/Water 50 ML IV 0506 Dexamethasone 4 MG Q6H 09/02 1100 DC Dextrose/Water 50 ML IV Dexamethasone 4 MG Q6 09/02 1015 DC Dextrose/Water 50 ML IV Dextrose/Sodium 1,000 ML ONCE ONE 09/03 0500 AC 09/03 Chloride IV 09/04 0059 0506 Dextrose/Sodium 1,000 ML ONCE ONE 09/02 0500 DC 09/02 Chloride IV 09/03 0059 0529 Heparin Sodium 5,000 UNIT Q8 09/02 2200 09/02 (Porcine) SC 2106 Insulin Human Regular 0 Q6 09/02 0600 09/03 SC 0603 Levothyroxine Sodium 12.5 MCG DAILY 09/02 0900 09/02 IV 1046 Lidocaine 1 PAT ONCE ONE 09/02 1215 DC 09/02 TOP 09/02 1216 1312 Nicotine 21 MG DAILY 09/02 0909 09/02 TOP 1046 Last 24 Hrs of Lab/[place] Results Last 24 Hrs of Labs/Mics: Laboratory Tests 09/03/17 0642: Anion Gap 11, Estimated GFR > 60, BUN/Creatinine Ratio 13.3 09/02/17 1150: C-Reactive Prot, Quant 1.4 H, ESR Westergren 40 H Assessment/Plan Assessment: The patient is a 67 year COPD, current smoker, HTN, type II DM, laryngeal cancer status post chemoradiation (1999), and hypothyroidism who presented to the [facility] ED after falling at home and unable to get up. She has been complaining of left-sided weakness with paresthesias along with episodes of urinary incontinence and urgency. On presentation to the [facility] ED, this was within normal limits including the blood pressure. On examination her speech was within normal limits and patient did have decrease strength on the left side. CT head without contrast demonstrated extensive subcortical low attenuation suggestive of edema within right centrum semiovale. There were 2 ill-defined lesion 10 mm in the right frontoparietal region and another 12 mm in medial right frontal lobe. Concerning for metastatic disease versus infarction. CT of the chest, abdomen, and pelvis with contrast was done and demonstrated s piculated right upper lobe mass concerning for a primary lung neoplasm. There is mediastinal and right hilar lymphadenopathy We have consulted oncology, neurosurgery and neurology. Problem list #Left-sided weakness and paresthesia in setting of poorly visualized areas of low attenuation suspicious for metastatic lesion, cannot rule out CVA #spiculated right upper lobe mass seen on CT #Right hand laceration status post suturing in ED #Chronic medical problems including COPD, HTN, type II DM, laryngeal carcinoma status post radiation and chemotherapy, arthritis, hypothyroidism Plan Patient has been started on dexamethasone as per neurosurgery recommendations. -continue dexamethasone, consider increasing to 4 mg every 6 hours if worsening weakness -MRI brain with and without contrast pending for further evaluation of possible metastasis -For lung mass with mediastinal adenopathy we are going to proceed with tissue biopsy, thoracic surgery versus IR -She will need a PET scan as an outpatient -She is currently n.p.o. awaiting barium swallow -Gentle IV hydration with D5 half-normal saline when n.p.o. -Full code Problem List: 1. Brain lesion 2. Lesion of lung Pain Ratin Pain Location: back Pain Goal: Remain pain free Pain Plan: prn Tomorrow's Labs & Rationales: as ordered
--- NOTE | 2017-09-03 07:36 | PN- Neurosurgical ---
Subjective Subjective: pt sitting in bed, very hungry, wants to eat. Says she is feeling stronger today. Denies CASEY, dizziness or confusion. Deneis fever, CP. SOB Objective Vital Signs and I&Os Vital Signs Date Time Temp Pulse Resp B/P B/P Pulse O2 O2 Flow FiO2 Mean Ox Delivery Rate 09/02 2151 98.2 78 18 130/86 92 Room Air 09/02 1600 91 Room Air 09/02 1424 97.8 81 18 132/90 91 Room Air 09/02 0800 92 Room Air 09/02 0752 98.1 80 20 154/98 92 Room Air Intake & Output 09/03 0800 09/03 0000 09/02 1600 09/02 0800 09/02 0000 09/01 1600 Intake Total 400 50 Output Total 350 750 200 Balance -350 -350 -150 Intake, IV 400 50 Intake, Oral 0 Number 1 0 Bowel Movements Output, Urine 350 750 200 Patient 191 lb 187 lb 187 lb Weight Weight Bed scale Bed scale Estimated Measurement Method Physical Exam: gen- NAD, AAx3, speech is cleae resp- clear cardiac- rrr abd- ND, soft, NT ext- distal sensory and motor function intact. decreased strength on left side. Current Medications: Current Medications Sig/Ramy Start time Last Medication Dose Route Stop Time Status Admin Acetaminophen 1,000 MG ONCE ONE 09/02 2330 DC 09/02 N/A 1 UNIT IV 09/02 2344 2345 Acetaminophen 1,000 MG ONCE ONE 09/02 1700 DC 09/02 IV 09/02 1701 1701 Dexamethasone 2 MG Q6H 09/02 1700 CAN Dextrose/Water 50 ML IV Dexamethasone 2 MG Q8 09/02 1400 CAN IV PUSH Dexamethasone 2 MG Q6H 09/02 1200 AC 09/03 Dextrose/Water 50 ML IV 0506 Dexamethasone 4 MG Q6H 09/02 1100 DC Dextrose/Water 50 ML IV Dexamethasone 4 MG Q6 09/02 1015 DC Dextrose/Water 50 ML IV Dextrose/Sodium 1,000 ML ONCE ONE 09/03 0500 AC 09/03 Chloride IV 09/04 0059 0506 Dextrose/Sodium 1,000 ML ONCE ONE 09/02 0500 DC 09/02 Chloride IV 09/03 0059 0529 Heparin Sodium 5,000 UNIT Q8 09/02 2200 09/02 (Porcine) SC 2106 Insulin Human Regular 0 Q6 09/02 0600 09/03 SC 0603 Levothyroxine Sodium 12.5 MCG DAILY 09/02 0900 AC 09/02 IV 1046 Lidocaine 1 PAT ONCE ONE 09/02 1215 DC 09/02 TOP 09/02 1216 1312 Nicotine 21 MG DAILY 09/02 0909 AC 09/02 TOP 1046 Sodium Phosphate 1 UNIT ONCE ONE 09/02 0800 DC LA 09/02 0801 Results Last 48 Hours of Labs: Laboratory Tests 09/03 09/02 09/02 0642 1150 0626 Chemistry Sodium (137 - 145 mmol/L) Pending 146 H Potassium (3.5 - 5.1 mmol/L) Pending 3.7 Chloride (98 - 107 mmol/L) Pending 104 Carbon Dioxide (22 - 30 mmol/L) Pending 29 Anion Gap (5 - 16) Pending 13 BUN (7 - 17 mg/dL) Pending 9 Creatinine (0.5 - 1.0 mg/dL) Pending 0.7 Estimated GFR (>60 ml/min) > 60 BUN/Creatinine Ratio (7 - 25 %) Pending 12.9 Hemoglobin A1c (4.2 - 5.8 %) Pending Magnesium (1.6 - 2.3 mg/dL) 1.9 C-Reactive Prot, Quant (<1.0 mg/dL) 1.4 H Triglycerides (<150 mg/dL) 58 Cholesterol (<200 MG/DL) 183 LDL Cholesterol, Calc (65 - 129 mg/dL) 117 HDL Cholesterol (40 - 60 mg/dL) 55 Cholesterol/HDL Ratio (0.00 - 4.23 %) 3 Hematology CBC w Diff NO MAN DIFF REQ WBC (4.8 - 10.8 /CUMM) 8.9 RBC (4.20 - 5.40 /CUMM) 3.95 L Hgb (12.0 - 16.0 G/DL) 11.4 L Hct (37 - 47 %) 35.3 L MCV (81.0 - 99.0 FL) 89.5 MCH (27.0 - 31.0 PG) 28.9 MCHC (33.0 - 37.0 G/DL) 32.2 L RDW (11.5 - 14.5 %) 14.5 Plt Count (130 - 400 /CUMM) 188 MPV (7.4 - 10.4 FL) 9.1 Gran % (42.2 - 75.2 %) 72.0 Lymphocytes % (20.5 - 51.1 %) 17.9 L Monocytes % (1.7 - 9.3 %) 9.5 H Eosinophils % (0 - 5 %) 0.4 Basophils % (0.0 - 2.0 %) 0.2 Absolute Granulocytes (1.4 - 6.5 /CUMM) 6.4 Absolute Lymphocytes (1.2 - 3.4 /CUMM) 1.6 Absolute Monocytes (0.10 - 0.60 /CUMM) 0.8 H Absolute Eosinophils (0.0 - 0.7 /CUMM) 0 Absolute Basophils (0.0 - 0.2 /CUMM) 0 ESR Westergren (0 - 20 MM) 40 H 17 09/02 0046 0018 Chemistry Sodium (137 - 145 mmol/L) 146 H Potassium (3.5 - 5.1 mmol/L) 3.9 Chloride (98 - 107 mmol/L) 101 Carbon Dioxide (22 - 30 mmol/L) 32 H Anion Gap (5 - 16) 12 BUN (7 - 17 mg/dL) 10 Creatinine (0.5 - 1.0 mg/dL) 0.8 Estimated GFR (>60 ml/min) > 60 BUN/Creatinine Ratio (7 - 25 %) 12.5 Glucose (65 - 99 mg/dL) 104 H Calcium (8.4 - 10.2 mg/dL) 9.8 Total Bilirubin (0.2 - 1.3 mg/dL) 0.7 AST (14 - 36 U/L) 25 ALT (9 - 52 U/L) 17 Alkaline Phosphatase (<127 U/L) 87 Troponin I (< 0.11 ng/ml) < 0.01 Total Protein (6.3 - 8.2 g/dL) 7.2 Albumin (3.5 - 5.0 g/dL) 4.0 Globulin (1.9 - 4.2 gm/dL) 3.2 Albumin/Globulin Ratio (1.1 - 2.2 %) 1.3 TSH (0.270 - 4.200 uIU/mL) 2.830 Free T4 (0.78 - 2.44 ng/dL) 1.69 Hematology CBC w Diff NO MAN DIFF REQ WBC (4.8 - 10.8 /CUMM) 8.6 RBC (4.20 - 5.40 /CUMM) 4.13 L Hgb (12.0 - 16.0 G/DL) 11.9 L Hct (37 - 47 %) 36.9 L MCV (81.0 - 99.0 FL) 89.4 MCH (27.0 - 31.0 PG) 28.9 MCHC (33.0 - 37.0 G/DL) 32.3 L RDW (11.5 - 14.5 %) 14.3 Plt Count (130 - 400 /CUMM) 210 MPV (7.4 - 10.4 FL) 8.5 Gran % (42.2 - 75.2 %) 86.2 H Lymphocytes % (20.5 - 51.1 %) 7.4 L Monocytes % (1.7 - 9.3 %) 5.9 Eosinophils % (0 - 5 %) 0.3 Basophils % (0.0 - 2.0 %) 0.2 Absolute Granulocytes (1.4 - 6.5 /CUMM) 7.4 H Absolute Lymphocytes (1.2 - 3.4 /CUMM) 0.6 L Absolute Monocytes (0.10 - 0.60 /CUMM) 0.5 Absolute Eosinophils (0.0 - 0.7 /CUMM) 0 Absolute Basophils (0.0 - 0.2 /CUMM) 0 Urines Urine Color (YEL,AMB,STR) YEL Urine Clarity (CLEAR) CLEAR Urine pH (5.0 - 8.0) 6.0 Ur Specific [place] (1.001 - 1.035) 1.010 Urine Protein (NEG,<30 MG/DL) TRACE H Urine Ketones (NEG) 15 H Urine Nitrite (NEG) NEG Urine Bilirubin (NEG) NEG Urine Urobilinogen (0.1 - 1.0 EU/dl) 2.0 H Ur Leukocyte Esterase (NEG) NEG Ur Microscopic SEDIMENT EXAMINED Ur Epithelial Cells (NONE,FEW) RARE Urine Crystals 4+ CA OX H Urine Hemoglobin (NEG) NEG Urine Glucose (N MG/DL) NEG Assessment/Plan Assessment/Plan 67 year-old female smoker with 2 week history of progressive left-sided weakness SP fall yesterday. On imaging she ahs bilateral brain lesions with edema as well as a right upper lobe lung mass with associated hilar and mediastinal lympadenopathy, which is concerning for metastatic disease. Will await MRI of the brain this morning. If this study confirms multifocal metastatic disease, patient will be a candidate for chemotherapy radiation and is unlikely to require any neurosurgical intervention. Cont scheduled decadron HOB at 30 degrees Plan for MBI of brain today with and without gadolinium NPO with IVF hydration. Barium swallow eval this morning Rec Physical therapy dvt ppx- HSQ
--- NOTE | 2017-09-03 08:15 | Cons- Oncology ---
General Information and HPI Consulting Request Date of Consult: 09/03/17 Requested By: Ken Dominguez MD Reason for Consult: Brain lesion, lung mass Source of Information: patient, old records Exam Limitations: no limitations History of Present Illness: Ms. Jaime is a 67-year-old female with COPD, current smoker, HTN, type II DM, laryngeal cancer status post chemoradiation (1999), and hypothyroidism who presented to the [facility] ED after falling at home and unable to get up. She has been weak for the past 2 weeks. She has had progressive weakness on the left side in the upper and lower extremities. She does not some numbness and tingling on the same side. She has been having difficulty getting up and moving around. She denies any confusion. She denies any changes in her vision. She denies any nausea or vomiting. She denies any lightheadness or dizziness. She denies any headaches. She has not had any chest pain, shortness of breath, or stomach pain. She has not been sick recently. She has no fever or chills. She does not some decrease appetite and weight loss. She feels well otherwise. She just has been getting progressively weaker on the left side. On day of admission, she was unable to get out of her chair and get up. On presentation to the [facility] ED, she was noted to have normal blood pressure. She has mild anemia. Her speech was normal. She did have decrease strength on the left side. CT head without contrast demonstrated txtensive subcortical low-attenuation within the right centrum semiovale suggestive of edema. This surrounds an ill-defined area of low-attenuation within the high right frontoparietal region measuring 10 mm. There is a similar appearing subtle ill-defined 12 mm low-attenuation lesion within the medial right frontal lobe. These were concerning for metastatic disease versus infarctions. Neurosurgery has been consulted. She is currently on dexamethasone 2 mg every 6 hours. She seems to be improving clinically. CT of the chest, abdomen, and pelvis with contrast was done and demonstrated spiculated right upper lobe mass concerning for a primary lung neoplasm. There is mediastinal and right hilar lymphadenopathy. She feels well this morning. She is unsure if she wants to do anything if she was diagnosed with cancer again. She expressed that she is unsure if she wants to go through with chemotherapy and radiation again. Allergies/Medications Allergies: Coded Allergies: No Known Allergies (09/01/17) Home Med List: Amlodipine Besylate 10 MG TABLET 1 TAB PO DAILY BP (Reported) Hydralazine HCl 25 MG TABLET 1 TAB PO TID BP (Reported) Levothyroxine Sodium 25 MCG TABLET 1 TAB PO DAILY THYROID (Reported) Metformin HCl 500 MG TABLET 1 TAB PO BID DM (Reported) Metoprolol Tartrate 50 MG TABLET 1 TAB PO BID htn (Reported) Rosuvastatin Calcium (Crestor) 10 MG TABLET 1 TAB PO DAILY HL (Reported) Valsartan/Hydrochlorothiazide (Valsartan-Hctz 160-12.5 MG Tab) 160 MG-12.5 MG TABLET 1 TAB PO DAILY BP (Reported) Current Medications: Current Medications Sig/Ramy Start time Last Medication Dose Route Stop Time Status Admin Acetaminophen 1,000 MG ONCE ONE 09/02 2330 [place] 09/02 N/A 1 UNIT IV 09/02 2344 2345 Acetaminophen 1,000 MG ONCE ONE 09/02 1700 [place] 09/02 IV 09/02 1701 1701 Dexamethasone 2 MG Q6H 09/02 1700 CAN Dextrose/Water 50 ML IV Dexamethasone 2 MG Q8 09/02 1400 CAN IV PUSH Dexamethasone 2 MG Q6H 09/02 1200 AC 09/03 Dextrose/Water 50 ML IV 0506 Dexamethasone 4 MG Q6H 09/02 1100 DC Dextrose/Water 50 ML IV Dexamethasone 4 MG Q6 09/02 1015 DC Dextrose/Water 50 ML IV Dextrose/Sodium 1,000 ML ONCE ONE 09/03 0500 09/03 Chloride IV 09/04 0059 0506 Dextrose/Sodium 1,000 ML ONCE ONE 09/02 0500 [place] 09/02 Chloride IV 09/03 0059 0529 Heparin Sodium 5,000 UNIT Q8 09/02 2200 09/02 (Porcine) SC 2106 Insulin Human Regular 0 Q6 09/02 0600 09/03 SC 0603 Levothyroxine Sodium 12.5 MCG DAILY 09/02 0900 09/02 IV 1046 Lidocaine 1 PAT ONCE ONE 09/02 1215 [place] 09/02 TOP 09/02 1216 1312 Nicotine 21 MG DAILY 09/02 0909 09/02 TOP 1046 Past History Travel History Traveled to [place] past 21 day No Medical History Blood Transfusion Hx: Yes Neurological: NONE EENT: LARYGIAL CANCER Cardiovascular: hypertension, hyperlipidemia Respiratory: COPD Gastrointestinal: NONE Hepatic: NONE Renal: NONE Musculoskeletal: NONE Psychiatric: NONE Endocrine: diabetes Blood Disorders: NONE Cancer(s): THROAT CANCER HAIR WEAVER/Reproductive: NONE Surgical History Surgical History: hysterectomy, R thumb pinning Family History Relations & Conditions If Any: Relation not specified for: *No pertinent family history Psychosocial History Where Do You Live? Home Who Do You Live With? self Services at Home: None Primary Language: Taiwanese Smoking Status: Current Everyday Smoker (50 pack years) ETOH Use: denies use Illicit Drug Use: denies illicit drug use Living Will? no Functional Ability ADLs Independent: dressing, eating, toileting, bathing. Ambulation: independent Exam & Diagnostic Data Vital Signs and I&O Vital Signs Date Time Temp Pulse Resp B/P B/P Pulse O2 O2 Flow FiO2 Mean Ox Delivery Rate 09/03 0600 98.7 78 18 140/86 92 Room Air 09/02 2151 98.2 78 18 130/86 92 Room Air 09/02 1600 91 Room Air 09/02 1424 97.8 81 18 132/90 91 Room Air 09/02 0800 92 Room Air Intake & Output 09/03 0800 09/03 0000 09/02 1600 Intake Total 350 400 Output Total 550 350 750 Balance -200 -350 -350 Intake, IV 350 400 Number 1 Bowel Movements Output, Urine 550 350 750 Patient 86.806 kg Weight Weight Bed scale Measurement Method Physical Exam General Appearance: no apparent distress, alert, awake, comfortable Head: atraumatic Eyes: Bilateral: PERRL, EOMI. Ears, Nose, Throat: normal pharynx Neck: supple Respiratory: normal breath sounds, chest non-tender, no respiratory distress Cardiovascular: regular rate/rhythm Gastrointestinal: normal bowel sounds, soft, non-tender Extremities: no edema Neurologic/Psych: awake, alert, oriented x 3, motor weakness (LUE and LLE) Cranial Nerves: normal hearing, normal speech, PERRL Skin: normal color, warm/dry Lymphatic: no anterior cervical cristino Last 48 Hours of Lab Results: Laboratory Tests 09/03 09/02 09/02 0642 1150 0626 Chemistry Sodium (137 - 145 mmol/L) Pending 146 H Potassium (3.5 - 5.1 mmol/L) Pending 3.7 Chloride (98 - 107 mmol/L) Pending 104 Carbon Dioxide (22 - 30 mmol/L) Pending 29 Anion Gap (5 - 16) Pending 13 BUN (7 - 17 mg/dL) Pending 9 Creatinine (0.5 - 1.0 mg/dL) Pending 0.7 Estimated GFR (>60 ml/min) > 60 BUN/Creatinine Ratio (7 - 25 %) Pending 12.9 Hemoglobin A1c (4.2 - 5.8 %) Pending Magnesium (1.6 - 2.3 mg/dL) 1.9 C-Reactive Prot, Quant (<1.0 mg/dL) 1.4 H Triglycerides (<150 mg/dL) 58 Cholesterol (<200 MG/DL) 183 LDL Cholesterol, Calc (65 - 129 mg/dL) 117 HDL Cholesterol (40 - 60 mg/dL) 55 Cholesterol/HDL Ratio (0.00 - 4.23 %) 3 Hematology CBC w Diff NO MAN DIFF REQ WBC (4.8 - 10.8 /CUMM) 8.9 RBC (4.20 - 5.40 /CUMM) 3.95 L Hgb (12.0 - 16.0 G/DL) 11.4 L Hct (37 - 47 %) 35.3 L MCV (81.0 - 99.0 FL) 89.5 MCH (27.0 - 31.0 PG) 28.9 MCHC (33.0 - 37.0 G/DL) 32.2 L RDW (11.5 - 14.5 %) 14.5 Plt Count (130 - 400 /CUMM) 188 MPV (7.4 - 10.4 FL) 9.1 Gran % (42.2 - 75.2 %) 72.0 Lymphocytes % (20.5 - 51.1 %) 17.9 L Monocytes % (1.7 - 9.3 %) 9.5 H Eosinophils % (0 - 5 %) 0.4 Basophils % (0.0 - 2.0 %) 0.2 Absolute Granulocytes (1.4 - 6.5 /CUMM) 6.4 Absolute Lymphocytes (1.2 - 3.4 /CUMM) 1.6 Absolute Monocytes (0.10 - 0.60 /CUMM) 0.8 H Absolute Eosinophils (0.0 - 0.7 /CUMM) 0 Absolute Basophils (0.0 - 0.2 /CUMM) 0 ESR Westergren (0 - 20 MM) 40 H 06/17 06/17 0046 0018 Chemistry Sodium (137 - 145 mmol/L) 146 H Potassium (3.5 - 5.1 mmol/L) 3.9 Chloride (98 - 107 mmol/L) 101 Carbon Dioxide (22 - 30 mmol/L) 32 H Anion Gap (5 - 16) 12 BUN (7 - 17 mg/dL) 10 Creatinine (0.5 - 1.0 mg/dL) 0.8 Estimated GFR (>60 ml/min) > 60 BUN/Creatinine Ratio (7 - 25 %) 12.5 Glucose (65 - 99 mg/dL) 104 H Calcium (8.4 - 10.2 mg/dL) 9.8 Total Bilirubin (0.2 - 1.3 mg/dL) 0.7 AST (14 - 36 U/L) 25 ALT (9 - 52 U/L) 17 Alkaline Phosphatase (<127 U/L) 87 Troponin I (< 0.11 ng/ml) < 0.01 Total Protein (6.3 - 8.2 g/dL) 7.2 Albumin (3.5 - 5.0 g/dL) 4.0 Globulin (1.9 - 4.2 gm/dL) 3.2 Albumin/Globulin Ratio (1.1 - 2.2 %) 1.3 TSH (0.270 - 4.200 uIU/mL) 2.830 Free T4 (0.78 - 2.44 ng/dL) 1.69 Hematology CBC w Diff NO MAN DIFF REQ WBC (4.8 - 10.8 /CUMM) 8.6 RBC (4.20 - 5.40 /CUMM) 4.13 L Hgb (12.0 - 16.0 G/DL) 11.9 L Hct (37 - 47 %) 36.9 L MCV (81.0 - 99.0 FL) 89.4 MCH (27.0 - 31.0 PG) 28.9 MCHC (33.0 - 37.0 G/DL) 32.3 L RDW (11.5 - 14.5 %) 14.3 Plt Count (130 - 400 /CUMM) 210 MPV (7.4 - 10.4 FL) 8.5 Gran % (42.2 - 75.2 %) 86.2 H Lymphocytes % (20.5 - 51.1 %) 7.4 L Monocytes % (1.7 - 9.3 %) 5.9 Eosinophils % (0 - 5 %) 0.3 Basophils % (0.0 - 2.0 %) 0.2 Absolute Granulocytes (1.4 - 6.5 /CUMM) 7.4 H Absolute Lymphocytes (1.2 - 3.4 /CUMM) 0.6 L Absolute Monocytes (0.10 - 0.60 /CUMM) 0.5 Absolute Eosinophils (0.0 - 0.7 /CUMM) 0 Absolute Basophils (0.0 - 0.2 /CUMM) 0 Urines Urine Color (YEL,AMB,STR) YEL Urine Clarity (CLEAR) CLEAR Urine pH (5.0 - 8.0) 6.0 Ur Specific [place] (1.001 - 1.035) 1.010 Urine Protein (NEG,<30 MG/DL) TRACE H Urine Ketones (NEG) 15 H Urine Nitrite (NEG) NEG Urine Bilirubin (NEG) NEG Urine Urobilinogen (0.1 - 1.0 EU/dl) 2.0 H Ur Leukocyte Esterase (NEG) NEG Ur Microscopic SEDIMENT EXAMINED Ur Epithelial Cells (NONE,FEW) RARE Urine Crystals 4+ CA OX H Urine Hemoglobin (NEG) NEG Urine Glucose (N MG/DL) NEG Imaging/Other Studies: Head CT without contrast 09/01/2017: Extensive subcortical low-attenuation within the right centrum semiovale suggestive of edema. This surrounds an ill-defined area of low-attenuation within the high right frontoparietal region measuring 10 mm. The appearance is nonspecific, but could be manufacturer's service representative of a mass lesion with surrounding edema. That this represents a subacute infarction is also to be considered. As well, there is a similar appearing subtle ill-defined 12 mm low-attenuation lesion within the medial right frontal lobe. Consider correlation with brain MRI with contrast at this time. CT Chest/abdomen/pelvis with contrast 09/02/2017: The heart is of normal size. There is no pericardial effusion. There are enlarged mediastinal lymph nodes. There is a right pretracheal lymph node on image 143/[id number] measuring approximately 2.7 x 2.5 cm. There is an enlarged lymph node anterior to the upper SVC on image 136 measuring approximately 1.8 x 1.4 cm. There is a subcarinal lymph node measuring 1.7 x 1.4 cm. There is a right hilar lymph node measuring 2.0 x 2.0 cm.. There are no chest wall masses. Review of lung windows demonstrates that there are neither pleural effusions nor pneumothoraces. There are mild manifestations of biapical emphysema. There is a right upper lobe cavitary lesion on image 170 measuring approximately 1.5 cm in greatest dimension. There is an irregular shaped macrolobulated mildly spiculated right upper lobe mass on image 202 measuring approximately 3.4 x 2.8 cm. There is inferior segment left lingular atelectasis or scarring. The liver is of normal size and attenuation without focal lesions nor intrahepatic biliary ductal dilation. A normal gallbladder is identified. There is no wall thickening or discernible pericholecystic fluid. The spleen, pancreas, adrenal glands are unremarkable. Both kidneys are of normal size and attenuation without hydronephrosis or nephrolithiasis. Following the administration of IV contrast, prompt symmetric nephrograms are displayed. There is no abdominal free fluid. There is neither mesenteric nor retroperitoneal lymphadenopathy. Normal unopacified loops of small and large bowel are identified. A normal appendix is identified. There is no pelvic free fluid. The urinary bladder is unremarkable. There is neither pelvic nor inguinal lymphadenopathy. Bone windows: Neither sclerotic nor lytic bone lesions are identified. IMPRESSION: Spiculated right upper lobe mass concerning for a primary lung neoplasm. In addition, there is mediastinal and right hilar lymphadenopathy. There is an additional cavitary right upper lobe lesion. Mild biapical emphysema. Assessment/Plan Assessment: Ms. Jaime is a 67-year-old female with COPD, current smoker, HTN, type II DM, laryngeal cancer status post chemoradiation (1999), and hypothyroidism who presented to the [facility] ED after falling at home and unable to get up. She has been weak for the past 2 weeks. She has had progressive weakness on the left side in the upper and lower extremities. On presentation to the [facility] ED, CT head without contrast demonstrated txtensive subcortical low- attenuation within the right centrum semiovale suggestive of edema. This surrounds an ill-defined area of low-attenuation within the high right frontoparietal region measuring 10 mm. There is a similar appearing subtle ill- defined 12 mm low-attenuation lesion within the medial right frontal lobe. These were concerning for metastatic disease versus infarctions. CT of the chest, abdomen, and pelvis with contrast was done and demonstrated spiculated right upper lobe mass concerning for a primary lung neoplasm. There is mediastinal and right hilar lymphadenopathy. She has been started on dexamethasone 2 mg ever 6 hours and seems to be improving clinically. MRI is pending. Her presentation is concerning for metastatic lung cancer. She will need tissue diagnosis. Options for the patient would include bronchoscopy with biopsy versus IR for primary lung mass biopsy. With her bilateral emphysema, biopsy will be somewhat risky. She may need Dr. Reinoso or Dr. Saez to evaluate for possible biospy. IR biopsy would be reasonable if feasible. I have discussed the potential diagnosis with the patient. She is unclear if she wants to undergo therapy again. This may be discussed as an outpatient. Recommendations: Brain lesions: -continue dexamethasone, consider increasing to 4 mg every 6 hours if worsening weakness -obtain MRI brain with and without contrast -appreciate neurosurgery assistance Lung mass with mediastinal adenopathy: -PET as outpatient -obtain tissue biopsy of the lung/lymph node (Dr. Reinoso/[place] vs IR) Problem List: 1. Lesion of lung 2. Cavitary lesion of lung 3. Fall 4. Brain lesion Other Findings/Comments: Please call [phone] with any questions or concerns. Consult Acknowledgment - Thank you for your consult request.
--- NOTE | 2017-09-03 09:30 | ECHOCARDIOGRAM REPORT ---
FIDE RODRIGUES Age: 67 : 1950 Gender: F Exam Date: 09/02/2017 13:36 Exam Location: [address] [facility] Ht (in): 66 Wt (lb): 187 BSA: 2.01 BP: 128 / 92 Ordering Physician: Kathy Keita MD Referring Physician: Kathy Keita MD Technologist: Mona Yan [facility] Room Number: 176 Indications: STROKE Rhythm: Sinus Technical Quality: Fair FINDINGS Left Ventricle Normal left ventricular size, wall thickness and systolic function with no obvious regional wall motion abnormalities. Normal left ventricular diastolic filling pattern for age. The ejection fraction is visually estimated at >65 %. Right Ventricle The right ventricle is normal in size and function. Right Atrium The right atrium is normal in size. Left Atrium The left atrium is normal in size. The interatrial septum is intact. Mitral Valve Mild thickening/calcification of the mitral valve leaflets. No mitral regurgitation. Aortic Valve Diffuse thickening of the aortic valve cusps with reduced excursion. No aortic stenosis. No aortic regurgitation. Tricuspid Valve The tricuspid valve is normal in structure and function. There is trace to mild tricuspid regurgitation. Right ventricular systolic pressure estimated to be elevated at 40-45 mmHg. Pulmonic Valve Structurally normal pulmonic valve. There is no pulmonic regurgitation. Pericardium Normal pericardium without effusion. No pleural effusion. Great Vessels Normal aortic root dimension. The aortic arch and great vessels are not well seen. CONCLUSIONS Normal left ventricular size, wall thickness and systolic function with no obvious regional wall motion abnormalities. The ejection fraction is visually estimated at >65 %. The left atrium is normal in size. Mild thickening/calcification of the mitral valve leaflets. No mitral regurgitation. Diffuse thickening of the aortic valve cusps with reduced excursion. No aortic stenosis. No aortic regurgitation. Right ventricular systolic pressure estimated to be elevated at 40-45 mmHg. The aortic arch and great vessels are not well seen. Avtar Min M.D. (Electronically Signed) Final Date: 03 September 2017 09:29 MEASUREMENTS (Male / Female) Normal Values 2D ECHO LV Diastolic Diameter PLAX 4.3 cm 4.2 - 5.9 / 3.9 - 5.3 cm LV Systolic Diameter PLAX 2.4 cm 2.1 - 4.0 cm LV Fractional Shortening PLAX 44.2 % 25 - 46 % LV Ejection Fraction 2D Teich 75.7 % IVS Diastolic Thickness 0.8 cm LVPW Diastolic Thickness 1.0 cm LV Relative Wall Thickness 0.4 RV Internal Dim ED PLAX 2.9 cm 1.9 - 3.8 cm LVOT Diameter 1.9 cm Aortic Root Diameter 2.9 cm LA Systolic Diameter LX 2.1 cm 3.0 - 4.0 / 2.7 - 3.8 cm LA Volume 19.0 cm 18 - 58 / 22 - 52 cm DOPPLER AV Peak Velocity 187.0 cm/s AV Peak Gradient 14.0 mmHg AV Mean Velocity 132.0 cm/s AV Mean Gradient 8.0 mmHg AV Velocity Time Integral 37.5 cm LVOT Peak Velocity 105.0 cm/s LVOT Peak Gradient 4.4 mmHg LVOT Mean Velocity 72.8 cm/s LVOT Mean Gradient 2.0 mmHg LVOT Velocity Time Integral 22.1 cm LVOT Stroke Volume 62.7 cm AV Area Cont Eq vti 1.7 cm AV Area Cont Eq pk 1.6 cm MV Peak Velocity 91.8 cm/s MV Peak Gradient 3.4 mmHg MV Mean Velocity 59.2 cm/s MV Mean Gradient 2.0 mmHg Mitral E Point Velocity 82.9 cm/s Mitral A Point Velocity 81.9 cm/s Mitral E to A Ratio 1.0 MV PHT Velocity 79.9 cm/s MV Deceleration Archuleta 513.0 cm/s MV Pressure Half Time 46.7 ms MV Area PHT 4.7 cm MV Deceleration Time 254.0 ms TR Peak Velocity 315.0 cm/s TR Peak Gradient 39.7 mmHg Right Atrial Pressure 5.0 mmHg Pulmonary Artery Systolic Pressu 44.7 mmHg Right Ventricular Systolic Press 44.7 mmHg PV Peak Velocity 95.8 cm/s PV Peak Gradient 3.7 mmHg PV Mean Velocity 59.4 cm/s PV Mean Gradient 2.0 mmHg PV Velocity Time Integral 17.2 cm LV E' Lateral Velocity 8.3 cm/s Mitral E to LV E' Lateral Ratio 10.0 LV E' Septal Velocity 5.4 cm/s Mitral E to LV E' Septal Ratio 15.5
--- NOTE | 2017-09-03 12:04 | PN- Neurosurgical ---
Surgical Brief Attending Note Brief Attending Note: MRI brain reveiwed and consistent with multiple bilat ring enhancing lesions c/w metstatic disease. Given presence of multiple lesions, no role for neurosurgical intervention. Could consider stereotactic radiosurgery vs. whole brain XRT. Would consult with radonc to review. Call with questions.
--- NOTE | 2017-09-03 12:52 | RADIOLOGY REPORT ---
EXAMINATION: XR MODIFIED BARIUM SWALLOW CLINICAL INFORMATION: Weakness. Failed swallowing evaluation. COMPARISON: None. TECHNIQUE: A modified barium swallow was performed with speech pathologist in attendance. Pur?e, honey thick, nectar thick, thin, bread, and cracker consistencies were given to the patient and the swallowing mechanism was observed fluoroscopically with several spot films taken using the last image hold feature. FLUOROSCOPY TIME: 3 minutes 1 seconds. FINDINGS: With all consistencies, premature spillage of contrast into the valleculae seen before the initiation of a swallow. Some pooling of contrast in the valleculae is seen, clearing slowly on successive dry swallows. Penetration of contrast seen with puree, honey and nectar consistency, eliciting a cough response. With thin liquids, penetration and isamar aspiration of contrast was seen. With bread and cracker consistency, large amount of residual was noted in the vallecula and along the posterior pharyngeal wall, requiring several successive swallows for fine passage. No penetration or aspiration was seen bread or cracker consistency. Of note, there is decreased epiglottic inversion and difficulties with laryngeal elevation and patient required 5-6 swallows with all consistencies for clearance. IMPRESSION: 1. Disordered oral phase of swallowing as discussed above. 2. Penetration with sensation seen with puree, honey, nectar and thin consistency. 3. Aspiration seen with thin consistency. 4. Abnormal residual in the valleculae and posterior pharyngeal wall with bread and cracker consistency. 5. Speech pathologist assessment issued separately.
--- NOTE | 2017-09-03 13:33 | MRI REPORT ---
EXAMINATION: MR BRAIN WITHOUT AND WITH CONTRAST CLINICAL INFORMATION: Left-sided weakness. Rule out stroke. COMPARISON: Head CT 09/02/2017. TECHNIQUE: Multiplanar, multisequence imaging of the brain was performed before and after the intravenous administration of 10 mL of Gadavist. FINDINGS: There are 6 parenchymal intracranial metastases with most of the lesions measuring 1 to 2 cm in size and dominant 2.4 cm lesion centered in the right superior frontal gyrus. A punctate enhancing lesion is seen in the right posterior temporal lobe (series 9 image 57). These metastases demonstrate predominantly peripheral enhancement with central T2 hyperintensity and nonenhancement. There is confluent vasogenic edema in the right superior frontal gyrus and in the right perirolandic region with additional edema seen surrounding the hemorrhagic lesion in the left lateral frontal lobe (series 9 image 82). There is regional sulcal effacement but no midline shift or herniation. There is no acute infarct, parenchymal hemorrhage, or extra-axial collection. The ventricles are normal in size without evidence of hydrocephalus. The major arterial flow voids are preserved at the skull base. There is mild scattered paranasal sinus mucosal thickening. The orbital contents appear normal. IMPRESSION: - Six enhancing parenchymal metastases the largest in the frontal lobe measuring 2.4 cm. Vasogenic edema marginates the lesions and results in local sulcal effacement but no mass effect or herniation. - No acute infarct, parenchymal hemorrhage, or evidence of hydrocephalus.
[2017-09-03 15:22] VITALS: BP 120/84
[2017-09-03 17:24] VITALS: BP 124/56
[2017-09-03 22:19] VITALS: BP 146/84
[2017-09-04 07:03] VITALS: BP 156/100
--- NOTE | 2017-09-04 07:27 | PN- Housestaff ---
See Addendum Subjective Follow-up For: Primary lung neoplasm? Brain metastasis Tele-Events Since Last Visit: NSR Subjective: Seen and examined. Patient was seen by her oncologist Dr. Ortiz in the morning. She stated that she was given the bad news that she has cancer in her brain. Currently she is in denial and states that I refused to believe it. She is going to wait for the biopsy results. She reported feeling very exhausted after doing radiation and chemotherapy. Review of Systems Constitutional: Reports: see HPI. Objective Last 24 Hrs of Vital Signs/I&O Vital Signs Date Time Temp Pulse Resp B/P B/P Pulse O2 O2 Flow FiO2 Mean Ox Delivery Rate 09/04 0703 99.7 96 18 156/100 92 Room Air 09/03 2219 98.3 83 18 146/84 93 Room Air 09/03 2141 Room Air 09/03 1724 87 124/56 09/03 1522 98.5 104 20 120/84 94 Room Air Intake & Output 09/04 1600 09/04 0800 09/04 0000 Intake Total 150 50 Output Total 450 200 Balance -300 -150 Intake, IV 150 Intake, Oral 0 50 Number 0 0 Bowel Movements Output, Urine 450 200 Patient 188 lb Weight Weight Bed scale Measurement Method Physical Exam General Appearance: Alert, Oriented X3, Cooperative Cardiovascular: Normal S1, Normal S2 Lungs: Clear to Auscultation, Normal Air Movement Abdomen: Normal Bowel Sounds, Soft Neurological: Normal Speech Current Medications: Current Medications Sig/Ramy Start time Last Medication Dose Route Stop Time Status Admin Dexamethasone 2 MG Q6H 09/02 1200 AC 09/04 Dextrose/Water 50 ML IV 0558 Dextrose/Sodium 1,000 ML Q20H 09/04 0600 AC 09/04 Chloride IV 09/05 0159 0558 Dextrose/Sodium 1,000 ML ONCE ONE 09/03 0500 DC 09/03 Chloride IV 09/04 0059 0506 Heparin Sodium 5,000 UNIT Q8 09/03 1452 DC (Porcine) SC Heparin Sodium 5,000 UNIT Q8 09/02 2200 DC 09/02 (Porcine) SC 2106 Insulin Aspart 0 TIDAC 09/03 1700 DC 09/03 SC 09/03 2300 1706 Insulin Human Regular 0 Q6 09/03 2359 AC 09/04 SC 0534 Insulin Human Regular 0 Q6 09/02 0600 DC 09/03 SC 0603 Levothyroxine Sodium 12.5 MCG DAILY 09/02 0900 AC 09/03 IV 0954 Nicotine 21 MG DAILY 09/02 0909 09/03 [facility] 1814 Last 24 Hrs of Lab/[facility] Results Last 24 Hrs of Labs/Mics: Laboratory Tests 09/04/17 0700: Anion Gap 12, CBC w Diff Pending, WBC Pending, RBC Pending, Hgb Pending, Hct Pending, MCV Pending, MCH Pending, MCHC Pending, RDW Pending, Plt Count Pending, MPV Pending 09/03/17 1540: PT 13.0 H, INR 1.19 Assessment/Plan Assessment: The patient is a 67 year COPD, current smoker, HTN, type II DM, laryngeal cancer status post chemoradiation (1999), and hypothyroidism who presented to the [facility] ED after falling at home and unable to get up. She has been complaining of left-sided weakness with paresthesias along with episodes of urinary incontinence and urgency. On presentation to the [facility] ED, this was within normal limits including the blood pressure. On examination her speech was within normal limits and patient did have decrease strength on the left side. CT head without contrast demonstrated extensive subcortical low attenuation suggestive of edema within right centrum semiovale. There were 2 ill-defined lesion 10 mm in the right frontoparietal region and another 12 mm in medial right frontal lobe. Concerning for metastatic disease versus infarction. CT of the chest, abdomen, and pelvis with contrast was done and demonstrated s piculated right upper lobe mass concerning for a primary lung neoplasm. There is mediastinal and right hilar lymphadenopathy MRI head showed Six enhancing parenchymal metastases the largest in the frontal lobe measuring 2.4 cm. Vasogenic edema marginates the lesions and results in local sulcal effacement but no mass effect or herniation. No acute infarct, parenchymal hemorrhage, or evidence of hydrocephalus. Problem list #Left-sided weakness and paresthesia in setting of brain metastasis #spiculated right upper lobe mass seen on CT likely primary neoplasm #Right hand laceration status post suturing in ED #Chronic medical problems including COPD, HTN, type II DM, laryngeal carcinoma status post radiation and chemotherapy, arthritis, hypothyroidism Plan Patient has been started on dexamethasone as per neurosurgery recommendations. -Continue dexamethasone, consider increasing to 4 mg every 6 hours if worsening weakness -IR guided lung biopsy planned for today -She will need a PET scan as an outpatient -Patient underwent barium swallow and has been cleared to have regular solids and nectar thick liquids. However currently she is n.p.o. anticipating biopsy -Gentle IV hydration with D5 half-normal saline when n.p.o., advance diet after the procedure -Anticoagulation on hold as per IR, will resume after the procedure. -Radiation oncology consult will be placed for today -Full code Problem List: 1. Brain lesion 2. Lesion of lung Pain Ratin Pain Location: na Pain Goal: Pain 4 or less Pain Plan: prn Tomorrow's Labs & Rationales: bep
[2017-09-04 07:50] LABS: ABSOLUTE BASOPHIL COUNT 0 /CUMM (0.0-0.2); ABSOLUTE EOSINOPHIL COUNT 0 /CUMM (0.0-0.7); ABSOLUTE GRANULOCYTE CT 8.2 /CUMM (1.4-6.5); ABSOLUTE MONOCYTE COUNT 0.4 /CUMM (0.10-0.60); BASOPHIL % 0 % (0.0-2.0); EOSINOPHIL % 0 % (0-5); MEAN CORPUSCULAR HGB 28.7 PG (27.0-31.0); MEAN CORPUSCULAR HGB CONC 31.6 G/DL (33.0-37.0); MEAN CORPUSCULAR VOLUME 90.8 FL (81.0-99.0); MEAN PLATELET VOLUME 8.7 FL (7.4-10.4); PLATELET COUNT 216 /CUMM (130-400); RBC DISTRIBUTION WIDTH 14.4 % (11.5-14.5); WHITE BLOOD CELL COUNT 9.6 /CUMM (4.8-10.8)
[2017-09-04 09:25] LABS: GRANULOCYTE % 85.2 % (42.2-75.2)
[2017-09-04 09:39] VITALS: BP 142/92
--- NOTE | 2017-09-04 09:47 | PN- Oncology ---
Subjective Subjective: She feels a little strong. She denies any new pain. She denies any confusion. She changes in her in her vision. She has no fever or chills. She has no nausea or vomiting. She denies any new symptoms. Review of Systems Constitutional: Reports: weakness. Denies: chills, diaphoresis, fever. Cardiovascular: Denies: chest pain. Gastrointestinal: Denies: abdominal pain, constipation, diarrhea. Musculoskeletal: Denies: back pain. Neurological/Psychological: Reports: weakness (improved on the left side). Denies: confusion. All Other Systems: Reviewed and Negative Objective Vital Signs and I&Os Vital Signs Date Time Temp Pulse Resp B/P B/P Pulse O2 O2 Flow FiO2 Mean Ox Delivery Rate 09/04 0703 99.7 96 18 156/100 92 Room Air 09/03 2219 98.3 83 18 146/84 93 Room Air 09/03 2141 Room Air 09/03 1724 87 124/56 09/03 1522 98.5 104 20 120/84 94 Room Air Intake & Output 09/04 1600 09/04 0800 09/04 0000 09/03 1600 09/03 0800 09/03 0000 Intake Total 185 11 8803 350 Output Total 450 200 400 550 350 Balance -300 -150 600 -200 -350 Intake, IV 150 200 350 Intake, Oral 0 50 800 Number 0 0 Bowel Movements Output, Urine 450 200 400 550 350 Patient 85.474 kg 86.806 kg Weight Weight Bed scale Bed scale Measurement Method Physical Exam: General Appearance: no apparent distress, alert, awake, comfortable Eyes: Bilateral: PERRL, EOMI. Neck: supple Respiratory: normal breath sounds, chest non-tender, no respiratory distress Cardiovascular: regular rate/rhythm Gastrointestinal: normal bowel sounds, soft, non-tender Extremities: no edema Neurologic/Psych: awake, alert, oriented x 3, motor weakness (LUE and LLE) improved Cranial Nerves: normal hearing, normal speech, PERRL Skin: normal color, warm/dry Lymphatic: no anterior cervical cristino Current Medications: Current Medications Sig/Ramy Start time Last Medication Dose Route Stop Time Status Admin Dexamethasone 2 MG Q6H 09/02 1200 AC 09/04 Dextrose/Water 50 ML IV 0558 Dextrose/Sodium 1,000 ML Q20H 09/04 0600 AC 09/04 Chloride IV 09/05 1519 0558 Dextrose/Sodium 1,000 ML ONCE ONE 09/03 0500 DC 09/03 Chloride IV 09/04 0059 0506 Heparin Sodium 5,000 UNIT Q8 09/03 1452 DC (Porcine) SC Heparin Sodium 5,000 UNIT Q8 09/02 2200 DC 09/02 (Porcine) SC 2106 Insulin Aspart 0 TIDAC 09/03 1700 DC 09/03 SC 09/03 2300 1706 Insulin Human Regular 0 Q6 09/03 2359 AC 09/04 SC 0534 Insulin Human Regular 0 Q6 09/02 0600 DC 09/03 SC 0603 Levothyroxine Sodium 12.5 MCG DAILY 09/02 0900 AC 09/03 IV 0954 Nicotine 21 MG DAILY 09/02 0909 AC 09/03 TOP 1814 Results Last 24 Hours of Lab Results: Laboratory Tests 09/04 09/03 0700 1540 Chemistry Sodium (137 - 145 mmol/L) 150 H Potassium (3.5 - 5.1 mmol/L) 4.1 Chloride (98 - 107 mmol/L) 104 Carbon Dioxide (22 - 30 mmol/L) 34 H Anion Gap (5 - 16) 12 Coagulation PT (9.4 - 12.5 SEC) 13.0 H INR (0.90 - 1.19) 1.19 Hematology CBC w Diff NO MAN DIFF REQ WBC (4.8 - 10.8 /CUMM) 9.6 RBC (4.20 - 5.40 /CUMM) 4.40 Hgb (12.0 - 16.0 G/DL) 12.6 Hct (37 - 47 %) 40.0 MCV (81.0 - 99.0 FL) 90.8 MCH (27.0 - 31.0 PG) 28.7 MCHC (33.0 - 37.0 G/DL) 31.6 L RDW (11.5 - 14.5 %) 14.4 Plt Count (130 - 400 /CUMM) 216 MPV (7.4 - 10.4 FL) 8.7 Gran % (42.2 - 75.2 %) 85.2 H Lymphocytes % (20.5 - 51.1 %) 10.7 L Monocytes % (1.7 - 9.3 %) 4.1 Eosinophils % (0 - 5 %) 0 Basophils % (0.0 - 2.0 %) 0 Absolute Granulocytes (1.4 - 6.5 /CUMM) 8.2 H Absolute Lymphocytes (1.2 - 3.4 /CUMM) 1.0 L Absolute Monocytes (0.10 - 0.60 /CUMM) 0.4 Absolute Eosinophils (0.0 - 0.7 /CUMM) 0 Absolute Basophils (0.0 - 0.2 /CUMM) 0 Recent Imaging Studies: MRI with and without contrast 09/03/2017: There are 6 parenchymal intracranial metastases with most of the lesions measuring 1 to 2 cm in size and dominant 2.4 cm lesion centered in the right superior frontal gyrus. A punctate enhancing lesion is seen in the right posterior temporal lobe (series 9 image 57). These metastases demonstrate predominantly peripheral enhancement with central T2 hyperintensity and nonenhancement. There is confluent vasogenic edema in the right superior frontal gyrus and in the right perirolandic region with additional edema seen surrounding the hemorrhagic lesion in the left lateral frontal lobe (series 9 image 82). There is regional sulcal effacement but no midline shift or herniation. There is no acute infarct, parenchymal hemorrhage, or extra-axial collection. The ventricles are normal in size without evidence of hydrocephalus. The major arterial flow voids are preserved at the skull base. There is mild scattered paranasal sinus mucosal thickening. The orbital contents appear normal. IMPRESSION: - Six enhancing parenchymal metastases the largest in the frontal lobe measuring 2.4 cm. Vasogenic edema marginates the lesions and results in local sulcal effacement but no mass effect or herniation. - No acute infarct, parenchymal hemorrhage, or evidence of hydrocephalus. Assessment/Plan Assessment/Recommendations: Ms. Jaime is a 67-year-old female with COPD, current smoker, HTN, type II DM, laryngeal cancer status post chemoradiation (1999), and hypothyroidism who presented to the [facility] ED after falling at home and unable to get up. She has been weak for the past 2 weeks. She has had progressive weakness on the left side in the upper and lower extremities. On presentation to the [facility] ED, CT head without contrast demonstrated extensive subcortical low- attenuation within the right centrum semiovale suggestive of edema. This surrounds an ill-defined area of low-attenuation within the high right frontoparietal region measuring 10 mm. There is a similar appearing subtle ill- defined 12 mm low-attenuation lesion within the medial right frontal lobe. These were concerning for metastatic disease versus infarctions. CT of the chest, abdomen, and pelvis with contrast was done and demonstrated spiculated right upper lobe mass concerning for a primary lung neoplasm. There is mediastinal and right hilar lymphadenopathy. She has been started on dexamethasone 2 mg ever 6 hours and seems to be improving clinically. MRI demonstrate 6 metastatic lesions with largest around 2.4 cm. She is undergoing biopsy by IR today. She will need radiation oncology evaluation. Brain metastases: -Continue with dexamethasone -Consult radiation oncology Lung mass with mediastinal adenopathy: -Obtain tissue biopsy of lung (if lung primary, send for PD-L1, EGFR, ALK, ROS1) -PET as outpatient Please call [phone] with any questions or concerns. Problem List: 1. Lesion of lung 2. Brain metastases
--- NOTE | 2017-09-04 10:19 | Discharge Summary ---
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 Her vitals on presentation are MAXIMUM TEMPERATURE of 98.9, pulse of 95, respiration of 18, blood pressure 110/66, she was saturating 93% on room air. Relevant labs white count of 8.6, H/H of 11.9/36.9, platelet of 210. Sodium of 146, potassium of 3.9, BUN/creatinine of 10/0.8, glucose of 104, calcium of 9.8, liver function test within normal limits, troponin I less than 0.01. Urinalysis showed trace protein with ketones, 4+ calcium oxalate crystals negative leukocyte esterase and negative nitrite. Initial ED EKG showed normal sinus rhythm, rate of 76, no acute ST-T wave changes. She was admitted to the telemetry service and below is a summarry of the care she received under us. All imaging studies from the patient's admission have been included in the medical below. She also suffered laceration on her right side which was sutured. Problem list along with assessment and plan. #1 mechanical Fall + left-sided weakness possibly 2/2 to metastasis versus infarct Patient was initially admitted to the telemetry service. Neurochecks and aspiration precautions were maintained. An MRI of the brain was obtained results which are been attached. Patient also received a neurological and neurosurgery consult. Initially patient was kept nothing by mouth and some of the had a swallow evaluation. The patient was also started on Decadron... Over the course of the admission the patient worked with physical therapy and occupational therapy. Patient was deemed appropriate for Short term Rehab specifically for physical therapy. #2 Metastatic lesions involving and may not be limited to brain, mediastinal, and liver in the setting of a significant spiculated right upper lobe spiculated mass measuring 3.4 x 2.8 cm and a cavitary lesion on upper lobe measuring approximately 1.5 cm in greatest dimension. The current working diagnosis is that most likely she is presenting with a metastatic stage IV cancer with the lung being ther primary malignancy. After consultation with Heme onc/IR/ and cardiothoracic teams, it was decided that the best and less riskier approach for a biopsy inorder to obtain a tissue diagnosos , an ultrasound guided liver biopsy would be performed. This was performed on . Regarding the brain metastatic lesion (Six enhancing parenchymal metastases the largest in the frontal lobemeasuring 2.4 cm. Vasogenic edema marginates the lesions and results in local sulcal effacement but no mass effect or herniation.), she was started on dexamethasone and radiation oncology consult was obtained. At this moment patient was not amenable to radaition therapy giving her reason that she has already "endured" radiation for her throat cancer. Radiation oncologist assesed the patient and it was determined that she will be followed up after the tissue diagniosis is made. She was deemed a candiate for steortactic radiation therapy rather then WBRXT. Her dexamethasone was transitioned to oral 2mg q6h on discharge. #3 h/o DM Patient's fingersticks were checked and monitored. She was covered with an insulin sliding scale #4 Hypothyroid Patient's thyroxine was initially administered by IV. This was subsequently converted to by mouth levothyroxine when the patient could tolerate by mouth medication. #5 HTN Home medications were initially held. These were restarted when pressures became more elevated. Patient was a full code over the admission. For DVT ppx, patient was maintained on lovenox Attending note- She is a 67-year-old with a past medical history of diabetes and hypertension who is here status post a fall and was found to have multiple metastatic lesions in her brain with surrounding vasogenic edema, the presumed primary is a lung mass and its clearly spread. I spoke to the patient at length but she still is in strong denial that this is cancer and wants to wait for the results of the biopsy. I also spoke to the patient's niece given that the patient's permission today. Her name is Gloria Garcia ([phone]). And I went over the entire diagnosis, prognosis and need for close outpatient follow-up once the biopsy results come back. The niece clearly understands that this is cancer that has spread and her aunt is terminal. She lives in [place] and will come here over the weekend and will accompany her aunt to the office appointment to meet with Dr. Medrano to discuss treatment options to preserve quality of life once the diagnosis has been made. The patient's catheter will come out today, will pursue a bowel regimen and if she has a bowel movement and plan will be discharged to [facility] today with close outpatient follow-up. Total time spent coordinating discharge 38 minutes. Allergies: Coded Allergies: No Known Allergies (09/01/17) Pertinent Lab Results: PATIENT: FIDE JAIME PRESENT AGE: 67 PATIENT ACCOUNT NO: [id number] : 50 LOCATION: [facility] ORDERING PHYSICIAN: Anni MA SERVICE DATE: 09/01/17 EXAM TYPE: CAT - CT HEAD WO IV CONTRAST EXAMINATION: CT HEAD WITHOUT CONTRAST CLINICAL INFORMATION: Left-sided weakness. COMPARISON: None. TECHNIQUE: Contiguous axial images of the brain were obtained without IV contrast. DLP: 638 mGy-cm. FINDINGS: There are no pathologic extra-axial fluid collections. The lateral, third, fourth ventricles are nondilated and concordant with the appearance of the sulci. There is extensive subcortical low-attenuation within the right centrum semiovale with suggestion of mass effect manifested by subtle sulcal effacement. Within the high right frontoparietal region, there is an ill-defined area of low-attenuation measuring approximately 10 mm on image 44/64. In addition, there is an area of low-attenuation measuring approximately 12 mm within the medial right frontal lobe adjacent to the cortex. The paranasal sinuses and mastoid air cells are clear. There are no osseous lesions. IMPRESSION: Extensive subcortical low-attenuation within the right centrum semiovale suggestive of edema. This surrounds an ill-defined area of low-attenuation within the high right frontoparietal region measuring 10 mm. The appearance is nonspecific, but could be b2b sales representative of a mass lesion with surrounding edema. That this represents a subacute infarction is also to be considered. As well, there is a similar appearing subtle ill-defined 12 mm low-attenuation lesion within the medial right frontal lobe. Consider correlation with brain MRI with contrast at this time. The aforementioned was communicated to Dr. Chamorro at 0055 hours. DICTATED BY: Noe Weiner MD DATE/TIME DICTATED:09/02/1747 STEEL HANDLER:YON DATE/TIME TRANSCRIBED:09/02/1747 CONFIDENTIAL, DO NOT COPY WITHOUT APPROPRIATE AUTHORIZATION. <Electronically signed in Other Vendor System> SIGNED BY: Noe Weiner MD 09/02/17 0100 SERVICE DATE: 09/02/17- EXAM TYPE: US - [id number] DOPPLER EXAMINATION: DUPLEX BILATERAL CAROTID ULTRASOUND CLINICAL INFORMATION: Left weakness and facial numbness; risk factors include diabetes, tobacco use and hypertension. COMPARISON: Prior examinations, most recently 04/13/2016. TECHNIQUE: \\H\\B\\N\\ilateral carotid US was performed using real-time ultrasound and Doppler techniques (integrating B-mode 2D vascular images, Doppler spectral analysis and color flow Doppler imaging). These techniques were utilized to interrogate the extracranial carotid and vertebral arteries bilaterally. The degree of stenosis is based off criteria similar to NASCET. FINDINGS: Right side: 1. Mild echogenic plaque is seen in the ECA/ICA region. 2. The common carotid artery velocity is 94 cm/s. 3. The proximal internal carotid artery velocities are 64 cm/s systolic and 30 cm/s diastolic. 4. The external carotid artery velocity is 61 cm/s. Left side: 1. Mild echogenic plaque is seen in the ECA/ICA region. 2. The common carotid artery velocity is 112 cm/s. 3. The proximal internal carotid artery velocities are 66 cm/s systolic and 27 cm/s diastolic. 4. The external carotid artery velocity is 106 cm/s. ADDITIONAL FINDINGS: 1. The vertebral arteries show antegrade flow. IMPRESSION: 1. RIGHT: Minimal, nonhemodynamically significant stenosis of the proximal right internal carotid artery corresponding to a 0-49% stenosis by velocity criteria. 2. LEFT: Minimal, nonhemodynamically significant stenosis of the proximal left internal carotid artery corresponding to a 0-49% stenosis by velocity criteria. 3. Antegrade flow is seen via the bilateral vertebral arteries. DICTATED BY: Jesse Franklin MD SERVICE DATE: 09/02/176 EXAM TYPE: CAT - CT ABD & PELVIS W IV CONTRAST; CT CHEST W IV CONTRAST EXAMINATION: CT CHEST, ABDOMEN AND PELVIS WITH CONTRAST CLINICAL INFORMATION: Concern for metastatic disease. COMPARISON: None. TECHNIQUE: Contiguous axial thin section helical images of the chest, abdomen and pelvis were performed following the administration of 95 mL of intravenous Optiray 320. The data set was reformatted in the coronal and sagittal planes and reviewed on an independent workstation. DLP: 790 mGy-cm. FINDINGS: The heart is of normal size. There is no pericardial effusion. There are enlarged mediastinal lymph nodes. There is a right pretracheal lymph node on image 143/984 measuring approximately 2.7 x 2.5 cm. There is an enlarged lymph node anterior to the upper SVC on image 136 measuring approximately 1.8 x 1.4 cm. There is a subcarinal lymph node measuring 1.7 x 1.4 cm. There is a right hilar lymph node measuring 2.0 x 2.0 cm.. There are no chest wall masses. Review of lung windows demonstrates that there are neither pleural effusions nor pneumothoraces. There are mild manifestations of biapical emphysema. There is a right upper lobe cavitary lesion on image 170 measuring approximately 1.5 cm in greatest dimension. There is an irregular shaped macrolobulated mildly spiculated right upper lobe mass on image 202 measuring approximately 3.4 x 2.8 cm. There is inferior segment left lingular atelectasis or scarring. The liver is of normal size and attenuation without focal lesions nor intrahepatic biliary ductal dilation. A normal gallbladder is identified. There is no wall thickening or discernible pericholecystic fluid. The spleen, pancreas, adrenal glands are unremarkable. Both kidneys are of normal size and attenuation without hydronephrosis or nephrolithiasis. Following the administration of IV contrast, prompt symmetric nephrograms are displayed. There is no abdominal free fluid. There is neither mesenteric nor retroperitoneal lymphadenopathy. Normal unopacified loops of small and large bowel are identified. A normal appendix is identified. There is no pelvic free fluid. The urinary bladder is unremarkable. There is neither pelvic nor inguinal lymphadenopathy. Bone windows: Neither sclerotic nor lytic bone lesions are identified. IMPRESSION: Spiculated right upper lobe mass concerning for a primary lung neoplasm. In addition, there is mediastinal and right hilar lymphadenopathy. There is an additional cavitary right upper lobe lesion. Mild biapical emphysema. DICTATED BY: Regine PARR,FIDE Ro Age: 67 : 1950 Gender: F Exam Date: 09/02/2017 13:36 Exam Location: 1 [facility] Ht (in): 66 Wt (lb): 187 BSA: 2.01 BP: 128 / 92 Ordering Physician: Kathy Keita MD Referring Physician: Kathy Keita MD Technologist: Mona Yan KENDAL Room Number: 176 Indications: STROKE Rhythm: Sinus Technical Quality: Fair FINDINGS Left Ventricle Normal left ventricular size, wall thickness and systolic function with no obvious regional wall motion abnormalities. Normal left ventricular diastolic filling pattern for age. The ejection fraction is visually estimated at >65 %. Right Ventricle The right ventricle is normal in size and function. Right Atrium The right atrium is normal in size. Left Atrium The left atrium is normal in size. The interatrial septum is intact. Mitral Valve Mild thickening/calcification of the mitral valve leaflets. No mitral regurgitation. Aortic Valve Diffuse thickening of the aortic valve cusps with reduced excursion. No aortic stenosis. No aortic regurgitation. Tricuspid Valve The tricuspid valve is normal in structure and function. There is trace to mild tricuspid regurgitation. Right ventricular systolic pressure estimated to be elevated at 40-45 mmHg. Pulmonic Valve Structurally normal pulmonic valve. There is no pulmonic regurgitation. Pericardium Normal pericardium without effusion. No pleural effusion. Great Vessels Normal aortic root dimension. The aortic arch and great vessels are not well seen. CONCLUSIONS Normal left ventricular size, wall thickness and systolic function with no obvious regional wall motion abnormalities. The ejection fraction is visually estimated at >65 %. The left atrium is normal in size. Mild thickening/calcification of the mitral valve leaflets. No mitral regurgitation. Diffuse thickening of the aortic valve cusps with reduced excursion. No aortic stenosis. No aortic regurgitation. Right ventricular systolic pressure estimated to be elevated at 40-45 mmHg. The aortic arch and great vessels are not well seen. Avtar Min M.D. (Electronically Signed) Final Date: 03 September 2017 09:29 MEASUREMENTS (Male / Female) Normal Values 2D ECHO LV Diastolic Diameter PLAX 4.3 cm 4.2 - 5.9 / 3.9 - 5.3 cm LV Systolic Diameter PLAX 2.4 cm 2.1 - 4.0 cm LV Fractional Shortening PLAX 44.2 % 25 - 46 % LV Ejection Fraction 2D Teich 75.7 % IVS Diastolic Thickness 0.8 cm LVPW Diastolic Thickness 1.0 cm LV Relative Wall Thickness 0.4 RV Internal Dim ED PLAX 2.9 cm 1.9 - 3.8 cm LVOT Diameter 1.9 cm Aortic Root Diameter 2.9 cm LA Systolic Diameter LX 2.1 cm 3.0 - 4.0 / 2.7 - 3.8 cm LA Volume 19.0 cm 18 - 58 / 22 - 52 cm DOPPLER AV Peak Velocity 187.0 cm/s AV Peak Gradient 14.0 mmHg AV Mean Velocity 132.0 cm/s AV Mean Gradient 8.0 mmHg AV Velocity Time Integral 37.5 cm LVOT Peak Velocity 105.0 cm/s LVOT Peak Gradient 4.4 mmHg LVOT Mean Velocity 72.8 cm/s LVOT Mean Gradient 2.0 mmHg LVOT Velocity Time Integral 22.1 cm LVOT Stroke Volume 62.7 cm AV Area Cont Eq vti 1.7 cm AV Area Cont Eq pk 1.6 cm MV Peak Velocity 91.8 cm/s MV Peak Gradient 3.4 mmHg MV Mean Velocity 59.2 cm/s MV Mean Gradient 2.0 mmHg Mitral E Point Velocity 82.9 cm/s Mitral A Point Velocity 81.9 cm/s Mitral E to A Ratio 1.0 MV PHT Velocity 79.9 cm/s MV Deceleration Mcnairy 513.0 cm/s MV Pressure Half Time 46.7 ms MV Area PHT 4.7 cm MV Deceleration Time 254.0 ms TR Peak Velocity 315.0 cm/s TR Peak Gradient 39.7 mmHg Right Atrial Pressure 5.0 mmHg Pulmonary Artery Systolic Pressu 44.7 mmHg Right Ventricular Systolic Press 44.7 mmHg PV Peak Velocity 95.8 cm/s PV Peak Gradient 3.7 mmHg PV Mean Velocity 59.4 cm/s PV Mean Gradient 2.0 mmHg PV Velocity Time Integral 17.2 cm LV E' Lateral Velocity 8.3 cm/s Mitral E to LV E' Lateral Ratio 10.0 LV E' Septal Velocity 5.4 cm/s Mitral E to LV E' Septal Ratio 15.5 DICTATED BY: Mechelle PARR,Avtar Fine PATIENT: FIDE JAIME PRESENT AGE: 67 PATIENT ACCOUNT NO: [id number] : 50 LOCATION: 1NO ORDERING PHYSICIAN: Lilian Craft MD SERVICE DATE: 09/03/17- EXAM TYPE: MRI - MRI-HEAD W & W/O RANDAL EXAMINATION: MR BRAIN WITHOUT AND WITH CONTRAST CLINICAL INFORMATION: Left-sided weakness. Rule out stroke. COMPARISON: Head CT 09/02/2017. TECHNIQUE: Multiplanar, multisequence imaging of the brain was performed before and after the intravenous administration of 10 mL of Gadavist. FINDINGS: There are 6 parenchymal intracranial metastases with most of the lesions measuring 1 to 2 cm in size and dominant 2.4 cm lesion centered in the right superior frontal gyrus. A punctate enhancing lesion is seen in the right posterior temporal lobe (series 9 image 57). These metastases demonstrate predominantly peripheral enhancement with central T2 hyperintensity and nonenhancement. There is confluent vasogenic edema in the right superior frontal gyrus and in the right perirolandic region with additional edema seen surrounding the hemorrhagic lesion in the left lateral frontal lobe (series 9 image 82). There is regional sulcal effacement but no midline shift or herniation. There is no acute infarct, parenchymal hemorrhage, or extra-axial collection. The ventricles are normal in size without evidence of hydrocephalus. The major arterial flow voids are preserved at the skull base. There is mild scattered paranasal sinus mucosal thickening. The orbital contents appear normal. IMPRESSION: - Six enhancing parenchymal metastases the largest in the frontal lobe measuring 2.4 cm. Vasogenic edema marginates the lesions and results in local sulcal effacement but no mass effect or herniation. - No acute infarct, parenchymal hemorrhage, or evidence of hydrocephalus. DICTATED BY: Lalito Canales MD DATE/TIME DICTATED:09/03/171217 STEEL HANDLER:YON DATE/TIME TRANSCRIBED:09/03/171217 CONFIDENTIAL, DO NOT COPY WITHOUT APPROPRIATE AUTHORIZATION. <Electronically signed in Other Vendor System> SIGNED BY: Lalito Canales MD 09/03/17 1333 SERVICE DATE: 09/03/17 EXAM TYPE: RAD - XRY-MODIFIED BARIUM SWALLOW EXAMINATION: XR MODIFIED BARIUM SWALLOW CLINICAL INFORMATION: Weakness. Failed swallowing evaluation. COMPARISON: None. TECHNIQUE: A modified barium swallow was performed with speech pathologist in attendance. Pur?e, honey thick, nectar thick, thin, bread, and cracker consistencies were given to the patient and the swallowing mechanism was observed fluoroscopically with several spot films taken using the last image hold feature. FLUOROSCOPY TIME: 3 minutes 1 seconds. FINDINGS: With all consistencies, premature spillage of contrast into the valleculae seen before the initiation of a swallow. Some pooling of contrast in the valleculae is seen, clearing slowly on successive dry swallows. Penetration of contrast seen with puree, honey and nectar consistency, eliciting a cough response. With thin liquids, penetration and isamar aspiration of contrast was seen. With bread and cracker consistency, large amount of residual was noted in the vallecula and along the posterior pharyngeal wall, requiring several successive swallows for fine passage. No penetration or aspiration was seen bread or cracker consistency. Of note, there is decreased epiglottic inversion and difficulties with laryngeal elevation and patient required 5-6 swallows with all consistencies for clearance. IMPRESSION: 1. Disordered oral phase of swallowing as discussed above. 2. Penetration with sensation seen with puree, honey, nectar and thin consistency. 3. Aspiration seen with thin consistency. 4. Abnormal residual in the valleculae and posterior pharyngeal wall with bread and cracker consistency. 5. Speech pathologist assessment issued separately. DICTATED BY: Kathleen PARR,Kaylynn Grande Disposition Summary Disposition Principal Diagnosis: Mechanical Fall Additional Diagnosis: metastatic malignancy with lesions involving brain, liver and mediastinal areas. Discharge Disposition: SNF Discharge Instructions General Discharge Information Code Status: Full Code Patient's Diet: Regular with [place] consistency Patient's Activity: As tolerated Follow-Up Instructions/Appts: Please follow up with Dr Medrano-Oncologist (within 1 week) to discuss management including PET scan. Need to follow up on the Liver biopsy results If lung is found to be primary, a sendout for markers will need to be done (PD- L1, EGFR, ALK, ROS1) Continue taking the dexamethasone for 1 week and then have doctor Medrano evaluate the duartion and tapering schedule Please follow up with Radiation oncologist (Dr Guerrero) within 1 week and once the biopsy results are available. Dr Guerrero will arrange possible radiation sesssions for the brain lesions. Please follow up with your primary care within 1 week Medications at Discharge Discharge Medications: Stop taking the following medications: Valsartan/Hydrochlorothiazide (Valsartan-Hctz 160-12.5 MG Tab) 160 MG-12.5 MG TABLET ORAL DAILY Qty = 90 Continue taking these medications: Metformin HCl (Metformin HCl) 500 MG TABLET 1 Tablet ORAL TWICE DAILY Qty = 60 Comments: NOT ADMINISTERED Rosuvastatin Calcium (Crestor) 10 MG TABLET 1 Tablet ORAL DAILY Qty = 30 Comments: NOT ADMINISTERED Hydralazine HCl (Hydralazine HCl) 25 MG TABLET 1 Tablet ORAL THREE TIMES DAILY Qty = 180 Comments: Last Taken:09/06/17 Time:9AM Levothyroxine Sodium (Levothyroxine Sodium) 25 MCG TABLET 1 Tablet ORAL DAILY Qty = 180 Comments: Last Taken: 09/06/17 Time: 12:30 PM Amlodipine Besylate (Amlodipine Besylate) 10 MG TABLET 1 Tablet ORAL DAILY Qty = 90 Comments: Last Taken:09/06/17 Time:9AM Metoprolol Tartrate (Metoprolol Tartrate) 50 MG TABLET 1 Tablet ORAL TWICE DAILY Qty = 180 Comments: Last Taken:09/06/17 Time:9AM Start taking the following new medications: Dexamethasone (Dexamethasone) 2 MG TABLET 1 Tablet ORAL EVERY SIX HOURS Qty = 30 No Refills Comments: Last Taken:09/06/17 Time:12 PM Valsartan (Diovan) 160 MG TABLET 1 Tablet ORAL DAILY Qty = 30 No Refills Comments: NOT TAKEN, BEGIN TAKING TOMORROW 09/07/17 Polyethylene Glycol 3350 (Miralax) 17 GRAM POWD.PACK 1 Packet ORAL DAILY as needed for constipation Qty = 30 No Refills Instructions: dissolve in water Comments: NOT TAKEN Sennosides/Docusate Sodium (Senna S Tablet) 8.6 MG-50 MG TABLET 1 Tablet ORAL TWICE DAILY as needed for CONSTIPATION Qty = 30 No Refills Comments: NOT TAKEN Acetaminophen (Tylenol Extra Strength) 500 MG TABLET 2 Tablet ORAL THREE TIMES DAILY as needed for PAIN Qty = 30 No Refills Copies To: Cesar PARR,Megan Pineda; Ehsan PARR,Rob; Marcela PARR,[facility]
--- NOTE | 2017-09-04 14:33 | Cons- Radiation Oncology ---
General Information and HPI Consulting Request Date of Consult: 09/04/17 Requested By: Dr. Medrano ( medical oncology) Reason for Consult: Evaluate for Radiation Therapy Source of Information: patient, old records Exam Limitations: no limitations History of Present Illness: HIEF COMPLAINT: Weakness status post fall Patient Identification: 67-year-old female with probable metastatic lung cancer with brain metastases referred for palliative radiation therapy History Of Present Illness: Patient is a 67-year-old female with multiple medical problems including COPD, hypertension, type 2 diabetes, history of laryngeal cancer status post chemoradiation in 1999 (Dr. Salazar). She presented to the emergency room with weakness status post fall. CT scan of the head was performed which revealed findings suspicious for metastatic disease. MRI scan confirmed the presence of metastatic disease. At this time she is undergoing CT-guided biopsy for a lung mass. She was started on Decadron therapy with improvement CT Chest/Abd/Pelvis: 09/02/17: The heart is of normal size. There is no pericardial effusion. There are enlarged mediastinal lymph nodes. There is a feeding her resume in .5 cm. There is an enlarged lymph node anterior to the upper SVC on image 136 measuring approximately 1.8 x 1.4 cm. There is a subcarinal lymph node measuring 1.7 x 1.4 cm. There is a right hilar lymph node measuring 2.0 x 2.0 cm.. There are no chest wall masses. Review of lung windows demonstrates that there are neither pleural effusions nor pneumothoraces. There are mild manifestations of biapical emphysema. There is a right upper lobe cavitary lesion on image 170 measuring approximately 1.5 cm in greatest dimension. There is an irregular shaped macrolobulated mildly spiculated right upper lobe mass on image 202 measuring approximately 3.4 x 2.8 cm. There is inferior segment left lingular atelectasis or scarring. MRI brain: 09/03/17: FINDINGS: There are 6 parenchymal intracranial metastases with most of the lesions measuring 1 to 2 cm in size and dominant 2.4 cm lesion centered in the right superior frontal gyrus. A punctate enhancing lesion is seen in the right posterior temporal lobe (series 9 image 57). These metastases demonstrate predominantly peripheral enhancement with central T2 hyperintensity and nonenhancement. There is confluent vasogenic edema in the right superior frontal gyrus and in the right perirolandic region with additional edema seen surrounding the hemorrhagic lesion in the left lateral frontal lobe (series 9 image 82). There is regional sulcal effacement but no midline shift or herniation. There is no acute infarct, parenchymal hemorrhage, or extra-axial collection. The ventricles are normal in size without evidence of hydrocephalus. The major arterial flow voids are preserved at the skull base. There is mild scattered paranasal sinus mucosal thickening. The orbital contents appear normal. IMPRESSION: - Six enhancing parenchymal metastases the largest in the frontal lobe measuring 2.4 cm. Vasogenic edema marginates the lesions and results in local sulcal effacement but no mass effect or herniation. - No acute infarct, parenchymal hemorrhage, or evidence of hydrocephalus. Allergies/Medications Allergies: Coded Allergies: No Known Allergies (09/01/17) Home Med List: Amlodipine Besylate 10 MG TABLET 1 TAB PO DAILY BP (Reported) Hydralazine HCl 25 MG TABLET 1 TAB PO TID BP (Reported) Levothyroxine Sodium 25 MCG TABLET 1 TAB PO DAILY THYROID (Reported) Metformin HCl 500 MG TABLET 1 TAB PO BID DM (Reported) Metoprolol Tartrate 50 MG TABLET 1 TAB PO BID htn (Reported) Rosuvastatin Calcium (Crestor) 10 MG TABLET 1 TAB PO DAILY HL (Reported) Valsartan/Hydrochlorothiazide (Valsartan-Hctz 160-12.5 MG Tab) 160 MG-12.5 MG TABLET 1 TAB PO DAILY BP (Reported) Current Medications: Current Medications Sig/Ramy Start time Last Medication Dose Route Stop Time Status Admin Dexamethasone 2 MG Q6H 09/02 1200 AC 09/04 Dextrose/Water 50 ML IV 1306 Dextrose/Sodium 1,000 ML Q20H 09/04 0600 AC 09/04 Chloride IV 09/05 1519 0558 Heparin Sodium 5,000 UNIT Q8 09/04 1400 AC 09/04 (Porcine) SC 09/04 2300 1306 Heparin Sodium 5,000 UNIT Q8 09/03 1452 DC (Porcine) SC Heparin Sodium 5,000 UNIT Q8 09/02 2200 DC 09/02 (Porcine) SC 2106 Insulin Aspart 0 TIDAC 09/04 1200 AC SC Insulin Aspart 0 TIDAC 09/03 1700 DC 09/03 SC 09/03 2300 1706 Insulin Human Regular 2 UNITS .STK-MED ONE 09/04 0533 DC IV 09/04 0534 Insulin Human Regular 0 Q6 09/03 2359 DC 09/04 SC 0534 Levothyroxine Sodium 12.5 MCG DAILY 09/02 0900 AC 09/04 IV 0934 Nicotine 21 MG DAILY 09/02 0909 09/03 TOP 1814 Past History Travel History Traveled to [place] past 21 day No Medical History Blood Transfusion Hx: Yes Neurological: NONE EENT: LARYNX DISORDER Cardiovascular: hypertension Respiratory: COPD Gastrointestinal: NONE Hepatic: NONE Renal: NONE Musculoskeletal: NONE Psychiatric: NONE Endocrine: diabetes Blood Disorders: NONE 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 Home Who Do You Live With? self Services at Home: None Primary Language: Maltese Smoking Status: Current Everyday Smoker (50 pack years) ETOH Use: denies use Illicit Drug Use: denies illicit drug use Living Will? no Functional Ability ADLs Independent: dressing, eating, toileting, bathing. Ambulation: independent Exam & Diagnostic Data Vital Signs and I&O Vital Signs Date Time Temp Pulse Resp B/P B/P Pulse O2 O2 Flow FiO2 Mean Ox Delivery Rate 09/05 0616 98.1 85 18 126/66 95 Room Air 09/05 0000 96 Room Air 09/04 2235 98.0 92 16 132/80 92 Room Air 09/04 1804 59 140/80 09/04 1447 98.8 59 20 140/80 92 09/04 1332 Room Air Intake & Output 09/05 1600 09/05 0800 09/05 0000 Intake Total 700 Output Total 250 225 Balance 450 -225 Intake, IV 600 Intake, Oral 100 Output, Urine 250 225 Patient 188 lb Weight Physical Exam: Physical Exam Vitals: T: 99.7 P: 96 R: 18 BP: 142/92 O2 SAT: 92 WT: GENERAL: Well appearing in no acute distress. EYES: Anicteric sclera, EOMI, PERRLA. Conjunctivae pink. ENT: Oral cavity is clear. No evidence of thrush. Uvula is midline. NECK: There is no adenopathy in the head or neck area. No palpable thyroid nodules. HEART: S1, S2 heard. There are no murmurs or rubs Patient has regular rate and rhythm. LUNGS: Clear to auscultation. No wheezes or rales. No dullness to percussion. EXTREMITIES: No clubbing, edema, or cyanosis. SKIN: There are no suspicious lesions, no nodules, no signs or infection. LYMPH NODES: No cervical, supraclavicular, axillary and inguinal adenopathy. PSYCHIATRIC: The patient is pleasant and cooperative. No overt signs on anxiety or depression. NEUROLOGICAL: Alert and oriented x3, CN 2-12 intact Assessment/Plan Assessment: 67-year-old female with probable metastatic lung cancer with brain metastases referred for palliative radiation therapy. Patient presented after developing left-sided weakness status post fall. Imaging most consistent with metastatic lung cancer with brain metastases. At this time she is undergoing biopsy of the lung. She is currently on Decadron therapy and neurologically stable. We had a brief discussion regarding the role of potential radiation treatments. At this time I will follow up with the patient after tissue diagnosis has been obtained. She will most likely be a candidate for stereotactic radiosurgery versus whole brain radiation. Recommendations: Proceed with tissue diagnosis Continue on decadron therapy Re- evaluate for radiation therapy- most likely Stereotactic Radiosurgery as an outpatient Consult Acknowledgment - Thank you for your consult request.
[2017-09-04 14:47] VITALS: BP 140/80
[2017-09-04 22:35] VITALS: BP 132/80
[2017-09-05 06:16] VITALS: BP 126/66
--- NOTE | 2017-09-05 07:35 | PN- Housestaff ---
See Addendum Subjective Follow-up For: Primary lung neoplasm? Possible hepatic metastasis? 6 brain metastasis Subjective: Seen and examined. Sitting in the bed. Reported not having a good night sleep. Said that her bed kept beeping. She is currently n.p.o. awaiting biopsy. No fevers chills nausea vomiting or diarrhea overnight. Review of Systems Constitutional: Reports: see HPI. Objective Last 24 Hrs of Vital Signs/I&O Vital Signs Date Time Temp Pulse Resp B/P B/P Pulse O2 O2 Flow FiO2 Mean Ox Delivery Rate 09/05 0616 98.1 85 18 126/66 95 Room Air 09/05 0000 96 Room Air 09/04 2235 98.0 92 16 132/80 92 Room Air 09/04 1804 59 140/80 09/04 1447 98.8 59 20 140/80 92 09/04 1332 Room Air 09/04 0939 61 142/92 Intake & Output 09/05 0800 09/05 0000 09/04 1600 Intake Total 700 910 Output Total 250 225 700 Balance 450 -225 210 Intake, IV 600 430 Intake, Oral 100 480 Output, Urine 250 225 700 Patient 188 lb Weight Physical Exam General Appearance: Alert, Oriented X3, Cooperative HEENT: Atraumatic Cardiovascular: Normal S1, Normal S2 Lungs: Normal Air Movement Abdomen: Normal Bowel Sounds, Soft, No Tenderness Neurological: Normal Speech Current Medications: Current Medications Sig/Ramy Start time Last Medication Dose Route Stop Time Status Admin Acetaminophen 650 MG ONCE ONE 09/05 0115 DC 09/05 PO 09/05 0116 0129 Amlodipine Besylate 10 MG DAILY 09/04 1513 AC 09/04 PO 1804 Dexamethasone 2 MG Q6H 09/02 1200 AC 09/05 Dextrose/Water 50 ML IV 0557 Dextrose/Sodium 1,000 ML Q20H 09/04 0600 AC 09/04 Chloride IV 09/05 1519 0558 Heparin Sodium 5,000 UNIT Q8 09/04 1400 DC 09/04 (Porcine) SC 09/04 2300 2138 Hydralazine HCl 25 MG TID 09/04 2100 AC 09/04 PO 2138 Insulin Aspart 0 TIDAC 09/04 1200 DC 09/04 SC 09/04 2300 1803 Insulin Human Regular 0 Q6 09/04 2359 AC 09/05 SC 0129 Insulin Human Regular 0 Q6 09/03 2359 DC 09/04 [place] 0534 Levothyroxine Sodium 12.5 MCG DAILY 09/02 0900 09/04 IV 0934 Nicotine 21 MG DAILY 09/02 0909 09/03 [facility] 1814 Patient Medication 1 ED ONE ONE 09/04 1630 [facility] ED 09/04 1631 Last 24 Hrs of Lab/[facility] Results Last 24 Hrs of Labs/Mics: Laboratory Tests 09/05/17 0630: Sodium Pending, Potassium Pending, Chloride Pending, Carbon Dioxide Pending, Anion Gap Pending, BUN Pending, Creatinine Pending, BUN/Creatinine Ratio Pending 09/04/17 1850: Anion Gap 11, Estimated GFR > 60, BUN/Creatinine Ratio 20.0 Assessment/Plan Assessment: The patient is a 67 year COPD, current smoker, HTN, type II DM, laryngeal cancer status post chemoradiation (1999), and hypothyroidism who presented to the [facility] ED after falling at home and unable to get up. She has been complaining of left-sided weakness with paresthesias along with episodes of urinary incontinence and urgency. On presentation to the [facility] ED, this was within normal limits including the blood pressure. On examination her speech was within normal limits and patient did have decrease strength on the left side. CT head without contrast demonstrated extensive subcortical low attenuation suggestive of edema within right centrum semiovale. There were 2 ill-defined lesion 10 mm in the right frontoparietal region and another 12 mm in medial right frontal lobe. Concerning for metastatic disease versus infarction. CT of the chest, abdomen, and pelvis with contrast was done and demonstrated s piculated right upper lobe mass concerning for a primary lung neoplasm. There is mediastinal and right hilar lymphadenopathy MRI head showed Six enhancing parenchymal metastases the largest in the frontal lobe measuring 2.4 cm. Vasogenic edema marginates the lesions and results in local sulcal effacement but no mass effect or herniation. No acute infarct, parenchymal hemorrhage, or evidence of hydrocephalus. Problem list #Left-sided weakness and paresthesia in setting of brain metastasis #spiculated right upper lobe mass seen on CT likely primary neoplasm #Right hand laceration status post suturing in ED #Chronic medical problems including COPD, HTN, type II DM, laryngeal carcinoma status post radiation and chemotherapy, arthritis, hypothyroidism IR was contacted yesterday for possible CT guided lung biopsy. As it is likely that lung is a primary source of her neoplasm. This could not be performed because of delay. Later Dr. Ortiz the oncologist was contacted by IR for concern of increased risk. There is also possibility of hepatic metastasis. The initial plan was to proceed for bronchoscopy versus mediastinoscopy for biopsy. Dr. Ortiz has gotten in touch with Dr. Reinoso, IR and is coordinating the biopsy. She will require a PET scan and bone scan as an outpatient. She was started on dexamethasone as per neurosurgery recommendation. We will continue if there is worsening of weakness we can increase the dose 4 mg every 6 hours. She underwent modified barium swallow and is cleared to have regular solids and nectar thick diet. Currently she is n.p.o. awaiting biopsy. Radiation oncology has been contacted. Patient has not made up on her mind regarding chemo/radiation therapy at present. Blood pressure was running towards the higher side yesterday I restarted her home dose of amlodipine and add hydralazine During the morning rounds we were informed by that patient is going to go ultrasound-guided liver biopsy for hepatic metastasis via IR ay 10.00 am. NPO, advance diet after the biopsy/full code/anticoagulation on hold, will resume from tomorrow Problem List: 1. Fall 2. Laceration 3. Brain metastases Pain Ratin Pain Location: na Pain Goal: Pain 4 or less Pain Plan: prn Tomorrow's Labs & Rationales: bep
--- NOTE | 2017-09-05 07:44 | PN- Oncology ---
Subjective Subjective: She denies any new symptoms. Her strength is better. Biopsy was held off yesterday due to concern for increase risk and possible safer area to biopsy. Review of Systems: Constitutional: Reports: weakness, improving. Denies: chills, diaphoresis, fever. Cardiovascular: Denies: chest pain. Gastrointestinal: Denies: abdominal pain, constipation, diarrhea. Musculoskeletal: Denies: back pain. Neurological/Psychological: Reports: weakness (improved on the left side). Denies: confusion. All Other Systems: Reviewed and Negative Objective Vital Signs and I&Os Vital Signs Date Time Temp Pulse Resp B/P B/P Pulse O2 O2 Flow FiO2 Mean Ox Delivery Rate 09/05 0616 98.1 85 18 126/66 95 Room Air 09/05 0000 96 Room Air 09/04 2235 98.0 92 16 132/80 92 Room Air 09/04 1804 59 140/80 09/04 1447 98.8 59 20 140/80 92 09/04 1332 Room Air 09/04 0939 61 142/92 Intake & Output 09/05 0800 09/05 0000 09/04 1600 09/04 0800 09/04 0000 09/03 1600 Intake Total 700 910 185 53 3185 Output Total 250 225 700 450 200 400 Balance 450 -225 210 -300 -150 600 Intake, IV 600 430 150 200 Intake, Oral 100 480 0 50 800 Number 0 0 Bowel Movements Output, Urine 250 225 700 450 200 400 Patient 85.304 kg 85.474 kg Weight Weight Bed scale Measurement Method Physical Exam: General Appearance: no apparent distress, alert, awake, comfortable Neck: supple Respiratory: normal breath sounds, chest non-tender, no respiratory distress Cardiovascular: regular rate/rhythm Gastrointestinal: normal bowel sounds, soft, non-tender Extremities: no edema Neurologic/Psych: awake, alert, oriented x 3, motor weakness (LUE and LLE) improved Cranial Nerves: normal hearing, normal speech, PERRL Skin: normal color, warm/dry Lymphatic: no anterior cervical cristino Current Medications: Current Medications Sig/Ramy Start time Last Medication Dose Route Stop Time Status Admin Acetaminophen 650 MG ONCE ONE 09/05 0115 DC 09/05 PO 09/05 0116 0129 Amlodipine Besylate 10 MG DAILY 09/04 1513 AC 09/04 PO 1804 Dexamethasone 2 MG Q6H 09/02 1200 AC 09/05 Dextrose/Water 50 ML IV 0557 Dextrose/Sodium 1,000 ML Q20H 09/04 0600 AC 09/04 Chloride IV 09/05 1519 0558 Heparin Sodium 5,000 UNIT Q8 09/04 1400 DC 09/04 (Porcine) SC 09/04 2300 2138 Hydralazine HCl 25 MG TID 09/04 2100 AC 09/04 PO 2138 Insulin Aspart 0 TIDAC 09/04 1200 DC 09/04 SC 09/04 2300 1803 Insulin Human Regular 0 Q6 09/04 2359 AC 09/05 SC 0129 Insulin Human Regular 0 Q6 09/03 2359 DC 09/04 SC 0534 Levothyroxine Sodium 12.5 MCG DAILY 09/02 0900 AC 09/04 IV 0934 Nicotine 21 MG DAILY 09/02 0909 09/03 [facility] 1814 Patient Medication 1 ED ONE ONE 09/04 1630 DC Teaching ED 09/04 1631 Results Last 24 Hours of Lab Results: Laboratory Tests 09/05 09/04 0630 1850 Chemistry Sodium (137 - 145 mmol/L) Pending 145 Potassium (3.5 - 5.1 mmol/L) Pending 3.8 Chloride (98 - 107 mmol/L) Pending 102 Carbon Dioxide (22 - 30 mmol/L) Pending 32 H Anion Gap (5 - 16) Pending 11 BUN (7 - 17 mg/dL) Pending 14 Creatinine (0.5 - 1.0 mg/dL) Pending 0.7 Estimated GFR (>60 ml/min) > 60 BUN/Creatinine Ratio (7 - 25 %) Pending 20.0 Assessment/Plan Assessment/Recommendations: Ms. Jaime is a 67-year-old female with COPD, current smoker, HTN, type II DM, laryngeal cancer status post chemoradiation (1999), and hypothyroidism who presented to the [facility] ED after falling at home and unable to get up. She has been weak for the past 2 weeks. She has had progressive weakness on the left side in the upper and lower extremities. On presentation to the [facility] ED, CT head without contrast demonstrated extensive subcortical low- attenuation within the right centrum semiovale suggestive of edema. This surrounds an ill-defined area of low-attenuation within the high right frontoparietal region measuring 10 mm. There is a similar appearing subtle ill- defined 12 mm low-attenuation lesion within the medial right frontal lobe. These were concerning for metastatic disease versus infarctions. CT of the chest, abdomen, and pelvis with contrast was done and demonstrated spiculated right upper lobe mass concerning for a primary lung neoplasm. There is mediastinal and right hilar lymphadenopathy. She has been started on dexamethasone 2 mg ever 6 hours and seems to be improving clinically. MRI demonstrate 6 metastatic lesions with largest around 2.4 cm. Biopsy was felt to be higher risk with IR through the lung. I have discussed with Dr. Kasper and Dr. Reinoso on possible biopsy site. She may have a liver lesion. Dr. Reinoso will discuss with Dr. Kasper on possible biopsy site. She may be a candidate for bronchoscopy vs mediastinoscopy for biopsy. Dr. Guerrero has seen patient to discuss role of radiation. Brain metastases: -Continue with dexamethasone -Follow up with radiation oncology Lung mass with mediastinal adenopathy: -Obtain tissue biopsy (if lung primary, send for PD-L1, EGFR, ALK, ROS1) -Consult Dr. Reinoso -possible PET scan -if still in the hospital, may consider bone scan Please call [phone] with any questions or concerns. Problem List: 1. Brain metastases 2. Lesion of lung
--- NOTE | 2017-09-05 10:00 | PN- Student ---
Everardo Mejia 09/05/17 0936: Subjective Subjective: No overnight events reported. Ms. Jaime does state that she is hungry as she has been kept NPO for biopsy procedure. She also stated that the epigastric pain she had yesterday has subsided, yesterday she described it as throbbing and a 5/ 10 pain. She has no other complaints today and denies any chest pain, abdominal pain, difficulty breathing, headache, peripheral edema, nausea or vomiting. Social Hx: 50-70 pack year smoking history Family Hx: [id number] 62 years ago Father- age 73- HTN, unspecified brain tumor Paternal Grandmother- age 83- HTN Son- lives in [place] in apparent good health Objective Objective: Current Medications Sig/Ramy Start time Last Medication Dose Route Stop Time Status Admin Acetaminophen 650 MG ONCE ONE 09/05 0115 DC 09/05 PO 09/05 0116 0129 Amlodipine Besylate 10 MG DAILY 09/04 1513 09/04 PO 1804 Dexamethasone 2 MG Q6H 09/02 1200 09/05 Dextrose/Water 50 ML IV 0557 Dextrose/Sodium 1,000 ML Q20H 09/04 0600 09/04 Chloride IV 09/05 1519 0558 Heparin Sodium 5,000 UNIT Q8 09/04 1400 IA 09/04 (Porcine) WA 09/04 2300 2138 Hydralazine HCl 25 MG TID 09/04 2100 09/04 PO 2138 Insulin Aspart 0 TIDAC 09/04 1200 IA 09/04 WA 09/04 2300 1803 Insulin Human Regular 2 UNITS .STK-MED ONE 09/05 0122 DC IV 09/05 0123 Insulin Human Regular 0 Q6 09/04 2359 09/05 WA 0625 Insulin Human Regular 0 Q6 09/03 2359 IA 09/04 SC 0534 Levothyroxine Sodium 12.5 MCG DAILY 09/02 0900 09/05 IV 0900 Nicotine 21 MG DAILY 09/02 0909 09/05 TOP 0811 Patient Medication 1 ED ONE ONE 09/04 1630 DC Teaching ED 09/04 1631 Laboratory Tests 09/05 09/04 0630 1850 Chemistry Sodium (137 - 145 mmol/L) 145 145 Potassium (3.5 - 5.1 mmol/L) 3.7 3.8 Chloride (98 - 107 mmol/L) 103 102 Carbon Dioxide (22 - 30 mmol/L) 33 H 32 H Anion Gap (5 - 16) 9 11 BUN (7 - 17 mg/dL) 12 14 Creatinine (0.5 - 1.0 mg/dL) 0.7 0.7 Estimated GFR (>60 ml/min) > 60 > 60 BUN/Creatinine Ratio (7 - 25 %) 17.1 20.0 Vital Signs Date Time Temp Pulse Resp B/P B/P Pulse O2 O2 Flow FiO2 Mean Ox Delivery Rate 09/05 0616 98.1 85 18 126/66 95 Room Air 09/05 0000 96 Room Air 09/04 2235 98.0 92 16 132/80 92 Room Air 09/04 1804 59 140/80 09/04 1447 98.8 59 20 140/80 92 09/04 1332 Room Air Intake & Output 09/05 1600 09/05 0800 09/05 0000 Intake Total 700 Output Total 250 225 Balance 450 -225 Intake, IV 600 Intake, Oral 100 Output, Urine 250 225 Patient 188 lb Weight Physical Exam: Gen apperance: No evidence of acute distress, cooperative, AOx3 CV: reg rhythm and rate, normal S1 & S2, no MRG Pulm: Posterior lung driscoll clear to ausculatation, no evidence of wheeze, rub, ronchi or rales Abd: soft, non-tender, normal bowel sounds Neuro: normal speech, left arm drift, 4/5 strength in ULE and LLE at knee and ankle, 5/5 strength RUE and RLE, tricep, bicep, patella, achilles reflexes 2+ bilaterally Extremities: no evidence of peripheral edema, ecchymosis, rashes, laceration present on dorsum of right hand running from 2nd and 3rd MCP to middle of dorsal surface of hand, [address], clean and dry 4x4 gauze dressing with tape present, no evidence of errythema, warmth, drainage or saturation of the wound dressing Psych: no evidence of acute distress, humerous Assessment/Plan Assessment: Ms. Jaime is a 67 year old female with a PMHx significant for HTN, COPD, T2DM, hypothyroidism, and Laryngeal cancer (squamous cell) s/p chemoradiation (1999) that presented to [facility] on 09/01/17 with a 2 week history of left sided upper and lower extremity weakness and a fall that day, resulting in a laceration requiring sutures of the right hand. She also endorsed a 1 month history of 11 pound unitentional weight loss and anorexia. Subsequently CT imaging of the brain revealed extensive subcortical low attenuation suggestive of edema within right centrum semiovale, and 2 ill defined lesions. A 10 mm in the right frontoparietal region and another 12 mm in medial right frontal lobe concerning for metastatic disease versus infarction. Additionally imaging of the chest on CT revealed a spiculated right upper lobe mass suspicious for primary lung malignancy. MRI of the brain was then performed due to the [address] and revealed a total of 6 enhancing parenchymal metastases with vasogenic edema. Ms. Jaime has been being followed by neurosurgery, oncology and medicine throughout her hospitalization. Plan: Problem List: 1. 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 Spiculated right upper lobe mass 3. Left sided liver lesion 4. Right hand laceration 5. Chronic medical problems #Brain metastasis resulting in left side weakness: Patient has a total of 6 lesions with 2 large lesions present in the right hemisphere. This is likely impacting normal cortical motor function and is causing her left sided weakness. These lesions, as they are multiple in nature are likely food products sales representative of metastatic disease secondary to lung neoplasm. Given patient's long history of smoking and prior to admission being a current smoker most likely contributed to this. Other consideration was given as the patient reported her father had brain cancer of unkown etiology. However again due to the multiple lesions this is very unlikely to be a primary brain neoplasm. The plan is to perform safe, radiologically guided biopsy of one of the potenital lesions. There was a questionable lesion found in her liver and ultrasound guided biopsy would offer the safest means, as the patient has a history of emphysema and there is increased risk of pneumothorax. Additionally Ms. Jaime has been seen by oncology and will be advised appropriately as to which radiation therapy would be best to address these multiple lesions. Additionally Dexamethasone has been started as this will reduce the edema in the brain and reduce inflammation during radiation therapy to avoid further complications. 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 As stated above this likely is responsible for the multiple lesions seen on brain imaging. CT guided biopsy was unable to be performed for risk of pneumothorax, when given there is the possibility of liver metastesis offers a safer way of obtaining biopsy. Will continue to follow. Patient discussed willingness to stop smoking and potentially using nicotine patches as a way to quit. Patient is still deciding on chemotherapy/radiation therapy options at the moment. -Follow biopsy results -appreciate oncology recommendations -nicotine patch -appreciate patient's wishes regarding further management of malignancy #Right hand laceration: Patient presented with a laceration on the dorsum of the right hand requiring 8 sutures in the ED. Sutures a clean and the skin edges are tight with no evidence of erythema, warmth, drainage or other signs of infection around the wound. Clean and dry 4x4 dressing with tape is in place and being monitored. -keep laceration clean and dry -monitor for signs of infection -change dressing daily -remove sutures in 7-10 days #Chronic medical problems: Hypertension: patient's blood pressure was elevated yesterday. Prior to then blood pressure medications were on hold as BP was stable. Antihypertensives were resumed yesterday and should be continued with frequent BP checks. -continue Hydralazine 25 mg TID -Amlodipine 10 mg daily Hypothyroidism: continue 12.5 mcg of Levothyroxine daily T2DM: frequent finger sticks, fasting and 2 hours postprandial with insulin sliding scale. Finger sticks have been stable <200 mg/dL. Currently NPO until after IR guided biopsy then advance diet to full diabetic diet with nectar thick fluids Resume anticoagulation with Heparin after biopsy according to IR's recommendations Full code
--- NOTE | 2017-09-05 13:49 | ULTRASOUND REPORT ---
CLINICAL HISTORY: This patient is a 67 years old female with metastatic cancer of unknown etiology with lesions in the brain, lung, mediastinum and liver who presents to Interventional Radiology for targeted ultrasound-guided percutaneous liver biopsy. PROCEDURE: 1. Limited sonographic evaluation of the liver. 2. Ultrasound-guided targeted needle biopsy of the liver lesion. PHYSICIANS: Dr. Jelena Kasper (attending). MONITORING: The procedure was performed with conscious sedation and analgesia under my direct supervision. Continuous blood pressure, pulse oximetry as well as heartrate monitoring was performed by an independent registered nurse. Physician intraservice sedation time was 15 minutes. MEDICATIONS: 1. Versed 0.25 mg and fentanyl 50 mcg IV were administered. 2. Lidocaine 1%, 9 mL, SQ. COMPLICATIONS: None ESTIMATED BLOOD LOSS: <50 mL SPECIMENS: 18-gauge core biopsies from the left liver lesion IMPLANT: None SITE MARKING: As part of the preprocedure verification policy, a site marking procedure was initiated. Due to the nature the procedure, the insertion site could not be predetermined thus invoking the policy of exemption to site laterality and marking. Insertion site marking was performed in the procedure room in conjunction with imaging confirmation. PROCEDURE NOTE: Informed consent was obtained from the patient prior to the procedure. During this process, the procedure and potential alternatives were explained along with the intended outcome and benefits. The risks of the procedure, including the possibility of an unsuccessful procedure, as well as the risk of not doing the procedure, were discussed. The patient was given the opportunity to ask questions regarding the procedure and appeared competent to make decisions. A signed consent form documenting this discussion was placed in the medical record. A time-out procedure was performed. The patient was placed supine on the US table. The right upper abdomen was prepped and draped in the usual sterile fashion. All elements of maximal sterile barrier technique followed including use of cap, mask, sterile gown, sterile gloves, a sterile full body drape and hand hygiene. Also followed skin preparation with 2% chlorhexidine for cutaneous antisepsis, and sterile ultrasound preparation with sterile gel and probe cover when applicable. 9 mL of 1% lidocaine was used to obtain local anesthesia of the skin and deeper tissues. Focal ultrasound of the right liver was performed to access for an approach. Local anesthetic with lidocaine was administered under ultrasound guidance. Under ultrasound guidance, the 17 gauge double-wall needle from the Achieve biopsy set was advanced into the lesion within the left liver. The 18 gauge core biopsy needle from the biopsy set was advanced through the double-wall needle. A total of 2 core biopsy samples were obtained (the first pass did not yield adequate sample, therefore 2 additional passes were made for a total of 3 passes). Under ultrasound guidance, the needle track was closed with Gelfoam while the needle was removed. Manual pressure was applied to the track until hemostasis was achieved. The patient tolerated the procedure well. FINDINGS: 1. Successful core needle biopsy of the left-sided liver lesion. 2. No hepatic hematoma or subcapsular hematoma after removal of the biopsy needle. IMPRESSION: Successful core needle biopsy of the left liver lesion. PLAN: 1. The patient was stable after the procedure and was transferred to the interventional recovery area for observation. The patient will be transferred to the floor. 2. Patient will be instructed to lay on the site of biopsy for 1 hour to minimize risk of subcapsular hematoma. 3. Core biopsy samples will be sent to pathology.
--- NOTE | 2017-09-05 14:32 | Patient Discharge Instructions ---
Discharge Instructions General Discharge Information You were seen/treated for: Please follow-up with your primary care doctor after discharge Please follow-up with your oncologist after discharge You had these procedures: Liver biopsy Acute Coronary Syndrome Inclusion Criteria At DC or during hospital stay patient has or had the following: ACS DIAGNOSIS No Discharge Core Measures Meds if any: Prescribed or Continued at Discharge Meds if any: NOT Prescribed or Continued at Discharge Congestive Heart Failure Inclusion Criteria At DC or during hospital stay patient has or had the following: CHF DIAGNOSIS No Discharge Core Measures Meds if any: Prescribed or Continued at Discharge Meds if any: NOT Prescribed or Continued at Discharge Cerebrovascular accident Inclusion Criteria At DC or during hospital stay patient has or had the following: CVA/TIA Diagnosis No Discharge Core Measures Meds if any: Prescribed or Continued at Discharge Meds if any: NOT Prescribed or Continued at Discharge Venous thromboembolism Inclusion Criteria VTE Diagnosis No VTE Type NONE VTE Confirmed by (Test) NONE Discharge Core Measures - Per Current guidelines, there needs to be overlap - treatment for the first 5 days of Warfarin therapy. - If discharged on Warfarin prior to 5 days of - overlap therapy, the patient will need to be - assessed for post discharge needs including - *Post discharge parental anticoagulation - *Warfarin and/or parental anticoagulation education - *Follow up date to check INR post discharge At least 5 days overlap therapy as Inpatient No Meds if any: Prescribed or Continued at Discharge Note: Overlap Therapy is Warfarin and Anticoagulant Meds if any: NOT Prescribed or Continued at Discharge
[2017-09-05] MEDS ORDERED: DEXAMETHASONE2 M1 PO (14:43)
[2017-09-05 15:24] VITALS: BP 142/80
[2017-09-05 23:27] VITALS: BP 142/90
[2017-09-06 06:50] VITALS: BP 164/98
--- NOTE | 2017-09-06 07:00 | PN- Housestaff ---
Arsen PARR,Macey 09/06/17 0659: Subjective Follow-up For: Mini-Mental status Hepatic meniscus is Primary lung cancer? Subjective: Seen and examined. Resting comfortably. Status post hepatic biopsy. Treated the procedure well without any complications. It appears to me that patient is currently in denial and does not believe the gravity of her prognosis. Review of Systems Constitutional: Reports: see HPI. Objective Last 24 Hrs of Vital Signs/I&O Vital Signs Date Time Temp Pulse Resp B/P B/P Pulse O2 O2 Flow FiO2 Mean Ox Delivery Rate 09/06 1239 116/80 09/06 0857 83 164/98 09/06 0857 83 164/98 09/06 0856 83 160/98 09/06 0650 98.2 83 18 164/98 93 Room Air 09/05 2327 98.5 84 18 142/90 94 Room Air 09/05 2102 82 142/90 09/05 2102 82 142/90 09/05 2056 Room Air 09/05 1541 150/78 09/05 1524 98.1 67 20 142/80 100 Room Air Intake & Output 09/06 1600 09/06 0800 09/06 0000 Intake Total 480 Output Total 251 350 400 Balance 229 -350 -400 Intake, Oral 480 Number 1 Bowel Movements Output, Stool 1 Output, Urine 250 350 400 Patient 188 lb Weight Weight Bed scale Measurement Method Physical Exam General Appearance: Alert, Oriented X3 Cardiovascular: Normal S1, Normal S2, No Murmurs Lungs: Clear to Auscultation Abdomen: Soft, No Tenderness Neurological: Normal Speech Current Medications: Current Medications Sig/Ramy Start time Last Medication Dose Route Stop Time Status Admin Acetaminophen 650 MG ONCE ONE 09/06 1315 DC 09/06 PO 09/06 1316 1333 Amlodipine Besylate 10 MG DAILY 09/04 1513 AC 09/06 PO 0857 Bisacodyl 10 MG ONCE ONE 09/06 1000 DC 09/06 PA 09/06 1001 1109 Bisacodyl 5 MG ONE ONE 09/05 1700 DC 09/05 PO 09/05 1701 1804 Dexamethasone 2 MG Q6 09/05 1800 AC 09/06 PO 1238 Dexamethasone 2 MG Q6H 09/02 1200 DC 09/05 Dextrose/Water 50 ML IV 0557 Dextrose/Sodium 1,000 ML Q20H 09/04 0600 DC 09/04 Chloride IV 09/05 1519 0558 Docusate Sodium 100 MG DAILY 09/07 0900 AC PO Hydralazine HCl 25 MG TID 09/04 2100 AC 09/06 PO 0857 Insulin Aspart 0 TIDAC 09/05 1700 AC 09/05 SC 1804 Insulin Human Regular 0 Q6 09/04 2359 DC 09/05 SC 0625 Levothyroxine Sodium 0.025 MG DAILY AC 09/06 0829 AC 09/06 PO 1238 Levothyroxine Sodium 12.5 MCG DAILY 09/02 0900 DC 09/05 IV 0900 Losartan Potassium 50 MG DAILY 09/06 1000 AC 09/06 PO 1239 Metoprolol Tartrate 50 MG BID 09/05 2100 AC 09/06 PO 0856 Metoprolol Tartrate 50 MG BID 09/05 1045 DC PO Nicotine 21 MG DAILY 09/02 0909 AC 09/06 TOP 0857 Polyethylene Glycol 17 GM DAILY 09/06 0935 AC PO Senna/Docusate Sodium 2 TAB BID 09/06 0935 AC PO Last 24 Hrs of Lab/Harmeet Results Last 24 Hrs of Labs/Mics: Laboratory Tests 09/06/17 0637: CBC w Diff NO MAN DIFF REQ, RBC 4.42, MCV 90.3, MCH 28.4, MCHC 31.4 L, RDW 14.6 H, MPV 9.6, Gran % 83.5 H, Lymphocytes % 10.3 L, Monocytes % 6.2, Eosinophils % 0, Basophils % 0, Absolute Granulocytes 8.1 H, Absolute Lymphocytes 1.0 L, Absolute Monocytes 0.6, Absolute Eosinophils 0, Absolute Basophils 0 Assessment/Plan Assessment: The patient is a 67 year COPD, current smoker, HTN, type II DM, laryngeal cancer status post chemoradiation (1999), and hypothyroidism who presented to the [facility] ED after falling at home and unable to get up. She has been complaining of left-sided weakness with paresthesias along with episodes of urinary incontinence and urgency. On presentation to the [facility] ED, this was within normal limits including the blood pressure. On examination her speech was within normal limits and patient did have decrease strength on the left side. CT head without contrast demonstrated extensive subcortical low attenuation suggestive of edema within right centrum semiovale. There were 2 ill-defined lesion 10 mm in the right frontoparietal region and another 12 mm in medial right frontal lobe. Concerning for metastatic disease versus infarction. CT of the chest, abdomen, and pelvis with contrast was done and demonstrated s piculated right upper lobe mass concerning for a primary lung neoplasm. There is mediastinal and right hilar lymphadenopathy MRI head showed Six enhancing parenchymal metastases the largest in the frontal lobe measuring 2.4 cm. Vasogenic edema marginates the lesions and results in local sulcal effacement but no mass effect or herniation. No acute infarct, parenchymal hemorrhage, or evidence of hydrocephalus. Problem list #Left-sided weakness and paresthesia in setting of brain metastasis #spiculated right upper lobe mass seen on CT likely primary neoplasm #Right hand laceration status post suturing in ED #Chronic medical problems including COPD, HTN, type II DM, laryngeal carcinoma status post radiation and chemotherapy, arthritis, hypothyroidism IR was contacted yesterday for possible CT guided lung biopsy. As it is likely that lung is a primary source of her neoplasm. This could not be performed because of delay. Later Dr. Ortiz the oncologist was contacted by IR for concern of increased risk. There is also possibility of hepatic metastasis. The initial plan was to proceed for bronchoscopy versus mediastinoscopy for biopsy. Dr. Ortiz has gotten in touch with Dr. Reinoso, IR and is coordinating the biopsy. She will require a PET scan and bone scan as an outpatient. She was started on dexamethasone as per neurosurgery recommendation. We will continue if there is worsening of weakness we can increase the dose 4 mg every 6 hours. She underwent modified barium swallow and is cleared to have regular solids and nectar thick diet. Patient underwent hepatic biopsy yesterday. Our suspicion is that it is primary lung cancer which has metastasized to brain and liver. The biopsy results will be followed up by oncologist. We have restarted patient's antihypertensive medication and are going to hold off hydrochlorothiazide. Her White catheter was removed earlier in the morning. Patient had a bowel movement and is going to be discharged [facility]. Our attending Dr. Sosa has got in touch with patient's niece who is going to facilitate outpatient follow-up. I spoke in length with patient's son Kofi Limon [phone] and explained to him patient current medical situation in detail. She is stable to be discharged to rehab today. Problem List: 1. Brain metastases 2. Liver lesion 3. Cavitary lesion of lung Pain Ratin Pain Location: back Pain Goal: Pain 4 or less Pain Plan: prn Tomorrow's Labs & Rationales: kathe Alejandro MD,Mihaela 09/06/17 1055: Attending MD Review Statement Attending Statement Attending MD Statement: examined this patient, discuss w/resident/PA/SHEAR SETTER, agreed w/resident/PA/SHEAR SETTER, discussed with family, reviewed EMR data (avail), discussed with nursing, discussed with case mgmt, reviewed images Attending Assessment/Plan: Patient had an ultrasound-guided biopsy of the liver lesion yesterday, it was deemed to be the most accessible and safest to biopsy. She is a 67-year-old with a past medical history of diabetes and hypertension who is here status post a fall and was found to have multiple metastatic lesions in her brain with surrounding vasogenic edema, the presumed primary is a lung mass and its clearly spread. I spoke to the patient at length but she still is in strong denial that this is cancer and wants to wait for the results of the biopsy. I also spoke to the patient's niece given that the patient's permission today. Her name is Gloria Garcia ([phone]). And I went over the entire diagnosis, prognosis and need for close outpatient follow-up once the biopsy results come back. The niece clearly understands that this is cancer that has spread and her aunt is terminal. She lives in [place] and will come here over the weekend and will accompany her aunt to the office appointment to meet with Dr. Medrano to discuss treatment options to preserve quality of life once the diagnosis has been made. The patient's catheter will come out today, will pursue a bowel regimen and if she has a bowel movement and plan will be discharged to [facility] today with close outpatient follow-up. Total time spent coordinating discharge 38 minutes.
--- NOTE | 2017-09-06 07:59 | PN- Oncology ---
Subjective Subjective: She underwent biopsy yesterday. She still have some mild tenderness. She denies any new pain. She states she does not have any cancer. She believes in god and have oz. [place] has children in [place] and [place]. Review of Systems Constitutional: Denies: chills, fever. Cardiovascular: Denies: chest pain. Respiratory: Denies: short of breath. Gastrointestinal: Reports: abdominal pain (biopsy site). Musculoskeletal: Denies: back pain. Neurological/Psychological: Reports: weakness (left side, improving). Denies: ataxia, confusion. Hematologic/Endocrine: Denies: bruising, bleeding. All Other Systems: Reviewed and Negative Objective Vital Signs and I&Os Vital Signs Date Time Temp Pulse Resp B/P B/P Pulse O2 O2 Flow FiO2 Mean Ox Delivery Rate 09/06 0650 98.2 83 18 164/98 93 Room Air 09/05 2327 98.5 84 18 142/90 94 Room Air 09/05 2102 82 142/90 09/05 2102 82 142/90 09/05 2056 Room Air 09/05 1541 150/78 09/05 1524 98.1 67 20 142/80 100 Room Air 09/05 1024 Room Air Intake & Output 09/06 0800 09/06 0000 09/05 1600 09/05 0800 09/05 0000 09/04 1600 Intake Total 820 700 910 Output Total 350 400 700 250 225 700 Balance -350 -400 120 450 -225 210 Intake, IV 600 430 Intake, Oral 820 100 480 Output, Urine 350 400 700 250 225 700 Patient 85.275 kg 85.304 kg 85.304 kg Weight Weight Bed scale Measurement Method Physical Exam: General Appearance: no apparent distress, alert, awake, comfortable Respiratory: normal breath sounds, chest non-tender, no respiratory distress Cardiovascular: regular rate/rhythm Gastrointestinal: normal bowel sounds, soft, non-tender Extremities: no edema Neurologic/Psych: awake, alert, oriented x 3, motor weakness (LUE and LLE) improved Cranial Nerves: normal hearing, normal speech, PERRL Skin: normal color, warm/dry Lymphatic: no anterior cervical cristino Current Medications: Current Medications Sig/Ramy Start time Last Medication Dose Route Stop Time Status Admin Amlodipine Besylate 10 MG DAILY 09/04 1513 AC 09/04 PO 1804 Bisacodyl 5 MG ONE ONE 09/05 1700 DC 09/05 PO 09/05 1701 1804 Dexamethasone 2 MG Q6 09/05 1800 AC 09/06 PO 0527 Dexamethasone 2 MG Q6H 09/02 1200 DC 09/05 Dextrose/Water 50 ML IV 0557 Dextrose/Sodium 1,000 ML Q20H 09/04 0600 DC 09/04 Chloride IV 09/05 1519 0558 Fentanyl Citrate 0 .STK-MED ONE 09/05 1016 DC .ROUTE Gelatin 1 UNIT .STK-MED ONE 09/05 1122 DC TOP 09/05 1123 Hydralazine HCl 25 MG TID 09/04 2100 AC 09/05 PO 2102 Insulin Aspart 0 TIDAC 09/05 1700 AC 09/05 SC 1804 Insulin Human Regular 0 Q6 09/04 2359 DC 09/05 SC 0625 Levothyroxine Sodium 12.5 MCG DAILY 09/02 0900 AC 09/05 IV 0900 Lidocaine 1 ML .STK-MED ONE 09/05 1122 DC ID 09/05 1123 Metoprolol Tartrate 50 MG BID 09/05 2100 AC 09/05 PO 2102 Metoprolol Tartrate 50 MG BID 09/05 1045 DC PO Midazolam HCl 0 .STK-MED ONE 09/05 1016 DC .ROUTE Nicotine 21 MG DAILY 09/02 0909 AC 09/05 TOP 0811 Results Last 24 Hours of Lab Results: Laboratory Tests 09/06 0637 Hematology CBC w Diff Pending WBC Pending RBC Pending Hgb Pending Hct Pending MCV Pending MCH Pending MCHC Pending RDW Pending Plt Count Pending MPV Pending Assessment/Plan Assessment/Recommendations: Ms. Jaime is a 67-year-old female with COPD, current smoker, HTN, type II DM, laryngeal cancer status post chemoradiation (1999), and hypothyroidism who presented to the [facility] ED after falling at home and unable to get up. She has been weak for the past 2 weeks. She has had progressive weakness on the left side in the upper and lower extremities. On presentation to the [facility] ED, CT head without contrast demonstrated extensive subcortical low- attenuation within the right centrum semiovale suggestive of edema. This surrounds an ill-defined area of low-attenuation within the high right frontoparietal region measuring 10 mm. There is a similar appearing subtle ill- defined 12 mm low-attenuation lesion within the medial right frontal lobe. These were concerning for metastatic disease versus infarctions. CT of the chest, abdomen, and pelvis with contrast was done and demonstrated spiculated right upper lobe mass concerning for a primary lung neoplasm. There is mediastinal and right hilar lymphadenopathy. She also has a liver lesion. She has been started on dexamethasone 2 mg ever 6 hours and seems to be improving clinically. MRI demonstrate 6 metastatic lesions with largest around 2.4 cm. She underwent liver biopsy on yesterday by IR. Pathology is pending. She is working with PT for rehab. Brain metastases: -Continue with dexamethasone -Follow up with radiation oncology Lung mass with mediastinal adenopathy: -follow up with pathology (if lung primary, send for PD-L1, EGFR, ALK, ROS1) -possible PET scan as outpatient, can do bone scan as inpatient if not discharged Please call [phone] with any questions or concerns. Problem List: 1. Brain metastases 2. Lesion of lung 3. Liver lesion
[2017-09-06 08:21] LABS: ABSOLUTE BASOPHIL COUNT 0 /CUMM (0.0-0.2); ABSOLUTE EOSINOPHIL COUNT 0 /CUMM (0.0-0.7); ABSOLUTE GRANULOCYTE CT 8.1 /CUMM (1.4-6.5); ABSOLUTE MONOCYTE COUNT 0.6 /CUMM (0.10-0.60); BASOPHIL % 0 % (0.0-2.0); EOSINOPHIL % 0 % (0-5); GRANULOCYTE % 83.5 % (42.2-75.2); HEMATOCRIT 39.9 % (37-47); MEAN CORPUSCULAR HGB 28.4 PG (27.0-31.0); MEAN CORPUSCULAR HGB CONC 31.4 G/DL (33.0-37.0); MEAN CORPUSCULAR VOLUME 90.3 FL (81.0-99.0); MEAN PLATELET VOLUME 9.6 FL (7.4-10.4); PLATELET COUNT 203 /CUMM (130-400); RBC DISTRIBUTION WIDTH 14.6 % (11.5-14.5); RED BLOOD CELL CT 4.42 /CUMM (4.20-5.40)
[2017-09-06] MEDS ORDERED: DIOVAN160 MG PO (09:02)
[2017-09-06 09:28] LABS: WHITE BLOOD CELL COUNT 9.7 /CUMM (4.8-10.8)
[2017-09-06] MEDS ORDERED: SENNA S TABLET1 EACH PO (10:12)
[2017-09-06] MEDS ORDERED: MIRALAX17 G1 PO (10:12)
[2017-09-06] MEDS ORDERED: TYLENOL EXTRA500 M2 PO (13:54)
[2017-09-06 14:40] VITALS: BP 116/80
== END 2017-09-06 16:45 | DRG 54 ==
LOC: ERH 22:20 → 1NO 09-02 02:19 → ERHI 09-02 02:19 → 1NO 09-02 02:19 → EDBEDREQ 09-02 03:04 → ENRESERV 09-02 03:10 → 1NO 09-02 04:17 → ENPENDDIS 09-06 14:32 → 1NO 09-06 16:45
PROVIDERS: Internal Medicine; Physician Assistant
PROC: 0HQFXZZ Repair Right Hand Skin, External Approach (ICD-10-PCS; principal; 2017-09-05)
PROC: 0FB23ZX Excision of Left Lobe Liver, Percutaneous Approach, Diagnostic (ICD-10-PCS; 2017-09-05)
DX: C79.31 Secondary malignant neoplasm of brain (principal); G93.6 Cerebral edema; C34.11 Malignant neoplasm of upper lobe, right bronchus or lung; C78.7 Secondary malignant neoplasm of liver and intrahepatic bile duct; C79.89 Secondary malignant neoplasm of other specified sites; F17.210 Nicotine dependence, cigarettes, uncomplicated; Z85.21 Personal history of malignant neoplasm of larynx; S61.411A Laceration without foreign body of right hand, initial encounter; W07.XXXA Fall from chair, initial encounter; Z91.81 History of falling; Y92.009 Unspecified place in unspecified non-institutional (private) residence as the place of occurrence of the external cause; E11.9 Type 2 diabetes mellitus without complications; E03.9 Hypothyroidism, unspecified; Z79.84 Long term (current) use of oral hypoglycemic drugs; J44.9 Chronic obstructive pulmonary disease, unspecified; Z92.3 Personal history of irradiation
CPT/HCPCS: 1NP; 70552; 36415; 36592; 70553; 74177; 74230; 81001; 82436; 87086; 90471; 90714; 93005; 93010; 93306; 97112-GO; 97116-GO; 97161-GP; 97165-GO; 97530-GO; A9579; J0131; J1100; J1644; J1815; J2001; J7042